=== PATIENT | female | born 1975 | race Caucasian/White ===

== ENCOUNTER 2017-12-20 13:51 | Emergency (ER) | payer OTHER ==
--- NOTE | 2017-12-20 15:40 | RAD ---
HISTORY: Left temporal headache, subacute trauma COMPARISONS: MRI dated May 20, 2017 TECHNIQUE: Multiple contiguous axial CT scans were obtained of the head without intravenous contrast. FINDINGS: HEMORRHAGE/INFARCT: There is no hemorrhage or acute infarct. MASSES/SHIFT: There is no mass or shift. EXTRA-AXIAL SPACES: There are no extra-axial fluid collections. SULCI AND VENTRICLES: The sulci and ventricles are normal in size and position for the patient's stated age. CEREBRUM: There is multifocal hypoattenuation corresponding to the white matter changes noted on the previous MRI examination. BRAINSTEM: There are no focal parenchymal abnormalities. CEREBELLUM: There are no focal parenchymal abnormalities. VESSELS: The vessels are grossly normal. PARANASAL SINUSES: The paranasal sinuses are clear. ORBITS: The orbits are unremarkable. BONES AND SOFT TISSUE: No bone or soft tissue abnormalities are noted. OTHER: None IMPRESSION: 1. MULTIFOCAL HYPOATTENUATION CORRESPONDING TO THE WHITE MATTER CHANGES ON THE PREVIOUS MRI EXAMINATION CONSISTENT WITH THE HISTORY OF MULTIPLE SCLEROSIS. 2. NO ACUTE INTRACRANIAL PATHOLOGY.
--- NOTE | 2017-12-20 15:41 | RAD ---
HISTORY: Neck pain, trauma, subacute COMPARISONS: MRI dated May 20, 2017 TECHNIQUE: Multiple contiguous axial CT scans were obtained of the cervical spine without intravenous contrast, with coronal and sagittal multiplanar reformations. FINDINGS: BRAIN: The visualized brain is unremarkable CENTRAL CANAL: Evaluation of the central canal is limited on CT technique; however, there is no obvious canalicular mass or epidural hemorrhage. ALIGNMENT: There is straightening of the cervical lordosis. VERTEBRAL BODIES: The odontoid process is intact. The atlantoaxial intervals are symmetric. The vertebral bodies are normal in attenuation, without fracture. There is mild posterior osteophytic ridging at C5-C6 and C6-C7. JOINTS: There is no subluxation or dislocation. MUSCULATURE: Unremarkable INTERVERTEBRAL DISCS: There is mild diffuse loss of intervertebral disc height. AXIAL IMAGES: C2-C3: There is no osseous neural foraminal narrowing or central canal stenosis. C3-C4: There is no osseous neural foraminal narrowing or central canal stenosis. C4-C5: There is no osseous neural foraminal narrowing or central canal stenosis. C5-C6: There is no osseous neural foraminal narrowing or central canal stenosis. C6-C7: There is no osseous neural foraminal narrowing or central canal stenosis. C7-T1: There is no osseous neural foraminal narrowing or central canal stenosis. SOFT TISSUES: The visualized soft tissues of the neck are unremarkable. The prevertebral fat stripe is preserved. OTHER: None. IMPRESSION: STRAIGHTENING OF THE CERVICAL LORDOSIS. MILD DEGENERATIVE CHANGES. NO ACUTE OSSEOUS INJURY TO THE CERVICAL SPINE
--- NOTE | 2017-12-20 16:10 | RAD ---
HISTORY: Left ankle pain status post fall COMPARISONS: December 09, 2014, MRI dated October 22, 2016 VIEWS: 3, Frontal, lateral, and oblique views of the left ankle FINDINGS: BONE DENSITY: Normal. BONES: There is no displaced fracture. JOINTS: There is no arthropathy. ALIGNMENT: There is no dislocation. SOFT TISSUES: Unremarkable. OTHER FINDINGS: None. IMPRESSION: NO ACUTE OSSEOUS INJURY. IF SYMPTOMS PERSIST, RECOMMEND REPEAT IMAGING.
--- NOTE | 2017-12-20 16:11 | RAD ---
HISTORY: Left shoulder and scapular pain, status post fall COMPARISONS: None relevant available time dictation VIEWS: 5, Frontal internal rotation, external rotation, outlet, and axillary views of the left shoulder with frontal and lateral views of the scapula FINDINGS: BONE DENSITY: Normal. BONES: There is no displaced fracture. JOINTS: There is no arthropathy. ALIGNMENT: There is no dislocation. SOFT TISSUES: Unremarkable. OTHER FINDINGS: None. IMPRESSION: NO ACUTE OSSEOUS INJURY. IF SYMPTOMS PERSIST, RECOMMEND REPEAT IMAGING.
--- NOTE | 2017-12-20 16:35 | ED ---
James Lord Sixian, scribed for George Coley MD on 12/20/17 at 1515 . Complex/Multi-Sys Presentation - HPI Summary HPI Summary: This patient is a 42 year old F presenting to ED with a chief complaint of head , left shoulder and left foot pain s/p a fall down 10 stairs since 1230 today. She hit head and shoulder on the wall. The patient rates the pain 4/10 in severity. Symptoms aggravated and alleviated by nothing. Patient reports dizziness, LOPEZ and a lump on the back of her head. Patient denies LOC, neck pain. - History Of Current Complaint Chief Complaint: EDGeneral Time Seen by Provider: 12/20/17 14:39 Hx Obtained From: Patient Onset/Duration: Sudden Onset, Lasting Hours, Still Present Timing: Constant, Hours Severity Currently: Moderate - 4/10 Aggravating Factor(s): nothing Alleviating Factor(s): nothing Associated Signs And Symptoms: Positive: Other - Patient reports dizziness, LOPEZ and a lump on the back of her head. Patient denies LOC, neck pain. - Allergies/Home Medications Allergies/Adverse Reactions: Allergies Allergy/AdvReac Type Severity Reaction Status Date / Time azithromycin Allergy GI Upset Verified 12/20/17 16:01 diphenhydramine Allergy Tachycardia Verified 12/20/17 16:01 gadoteridol Allergy Rash Verified 12/20/17 16:00 Iodinated Contrast- Oral and Allergy Rash Verified 12/20/17 16:02 IV Dye tramadol Allergy Nausea And Verified 12/20/17 16:02 Vomiting Home Medications: Home Medications ALPRAZolam TAB* [Xanax TAB*] 0.5 mg PO DAILY PRN 12/20/17 [History Confirmed 01/04] Cholecalciferol TAB* [Vitamin D TAB*] 1,000 unit PO DAILY 12/20/17 [History Confirmed 12/20/17] L.acidoph,Paracasei, B.lactis [Probiotic] 1 each PO DAILY 12/20/17 [History Confirmed 12/20/17] Lidocaine 5% OINT* [Xylocaine 5% Oint*] 1 applic TOPICAL BID 12/20/17 [History Confirmed 12/20/17] Meloxicam(NF) [Mobic(NF)] 7.5 mg PO BID 12/20/17 [History Confirmed 12/20/17] Multivitamins/Minerals TAB* [Theragran/minerals TAB*] 1 tab PO DAILY 12/20/17 [ History Confirmed 12/20/17] [place]-3 Fatty Acids (Nf) [Fish Oil (NF)] 1,000 mg PO DAILY 12/20/17 [History Confirmed 12/20/17] Omeprazole CAP* [Prilosec CAP* 20 MG] 40 mg PO DAILY 12/20/17 [History Confirmed 12/20/17] PMH/Surg Hx/FS Hx/Imm Hx Endocrine/Hematology History: Denies: Hx Anticoagulant Therapy, Hx Diabetes, Hx Thyroid Disease Cardiovascular History: Reports: Other Cardiovascular Problems/Disorders - mitral valve prolapse Denies: Hx Hypertension, Hx Pacemaker/ICD Respiratory History: Reports: Hx Asthma, Hx Chronic Bronchitis, Hx Sleep Apnea - current CPAP user Denies: Hx Chronic Obstructive Pulmonary Disease (COPD) Comment Only: Other Respiratory Problems/Disorders - smoker, in process of quitting 07/2013 GI History: Reports: Hx Gastroesophageal Reflux Disease, Other GI Disorders - celiac disease Denies: Hx Cirrhosis, Hx Ulcer History: Denies: Hx Renal Disease Comment Only: Other Problems/Disorders - LEFT FLANK PAIN X 2 DAYS Musculoskeletal History: Reports: Hx Arthritis - hips/R.A. 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 Neurological History: Reports: Hx Headaches, Hx Migraine, Hx Nerve Disease - ms , Other Neuro Impairments/Disorders - MS Denies: Hx Dementia, Hx Seizures Psychiatric History: Reports: Hx Anxiety Denies: Hx Panic Disorder, Hx Substance Abuse - Surgical History Surgery Procedure, Year, and Place: 2-C SECTIONS 1993 & 2001; 2009 HYSTERECTOMY , TUBES IN EARS, LEFT KNEE ARTHROSCOPIC SURGERY Infectious Disease History: No Infectious Disease History: Denies: Hx Clostridium Difficile, Hx Hepatitis, Hx Human Immunodeficiency Virus (HIV), Hx of Known/Suspected MRSA, Hx Shingles, Hx Tuberculosis, Hx Known/ Suspected VRE, Hx Known/Suspected VRSA, History Other Infectious Disease, Traveled Outside the [place] in Last 30 Days - Family History Known Family History: Positive: Hypertension, Respiratory Disease - Asthma, Other - CHOLESTEROL - Social History Alcohol Use: None Substance Use Type: Reports: None Substance Use Comment - Amount & Last Used: MARINOL Smoking Status (MU): Former Smoker Have You Smoked in the Last Year: No Review of Systems Musculoskeletal: Negative - neck pain Positive: Other - lump on back of head Neurological: Negative - LOC, Other - dizziness Positive: Headache All Other Systems Reviewed And Are Negative: Yes Physical Exam - Summary Physical Exam Summary: General: well-appearing Skin: warm, color reflects adequate perfusion, dry Head: normal Eyes: EOMI, ALBERT ENT: normal Neck: supple, nontender Respiratory: CTA, breath sounds present Cardiovascular: RRR Abdomen: soft, nontender Bowel: present Musculoskeletal: strength intact, Mild tenderness due to palpation over the left scapula. Ankle swelling and tenderness of the lateral aspect. Pain with ROM of L ankle. Pain with ROM of shoulder, Declined internals rotation secondary to pain Neurological: normal, sensory/motor intact, A&O x3 Psychological: affect/mood appropriate Vital Signs On Initial Exam: Initial Vitals Temp Pulse Resp BP Pulse Ox 98.4 F 76 18 135/92 91 12/20/17 13:58 12/20/17 13:58 12/20/17 13:58 12/20/17 13:58 12/20/17 13:58 Diagnostics - Vital Signs Vital Signs Temp Pulse Resp BP Pulse Ox 12/20/17 13:58 98.4 F 76 18 135/92 91 - Laboratory Lab Statement: Any lab studies that have been ordered have been reviewed, and results considered in the medical decision making process. - Radiology shoulder XR Radiology Interpretation Completed By: Radiologist - NO ACUTE OSSEOUS INJURY. IF SYMPTOMS PERSIST, RECOMMEND REPEAT IMAGING. ED physician has reviewed this radiology report. scapula XR Radiology Interpretation Completed By: Radiologist - NO ACUTE OSSEOUS INJURY. IF SYMPTOMS PERSIST, RECOMMEND REPEAT IMAGING. ED physician has reviewed this radiology report. ankle XR Radiology Interpretation Completed By: Radiologist - NO ACUTE OSSEOUS INJURY. IF SYMPTOMS PERSIST, RECOMMEND REPEAT IMAGING. ED physician has reviewed this radiology report. - CT spine CT Interpretation Completed By: Radiologist - STRAIGHTENING OF THE CERVICAL LORDOSIS. MILD DEGENERATIVE CHANGES. NO ACUTE OSSEOUS INJURY TO THE CERVICAL SPINE. ED physician has reviewed this radiology report. brain CT Interpretation Completed By: Radiologist - 1. MULTIFOCAL HYPOATTENUATION CORRESPONDING TO THE WHITE MATTER CHANGES ON THE PREVIOUS MRI EXAMINATION CONSISTENT WITH THE HISTORY OF MULTIPLE SCLEROSIS. 2. NO ACUTE INTRACRANIAL PATHOLOGY. ED physician has reviewed this radiology report. Complex Multi-Symp Course/Dx Course Of Treatment: BP noted and advised to follow up with PCP. Medications reviewed. Allergies noted. DISCUSSED RESULTS WITH PATIENT AND HER . PATIENT REPORTS SHE HAS AN ANKLE AIR CAST AT HOME WHICH SHE WILL USE. F/U PMD; RETURN IF WORSE. - Diagnoses Provider Diagnoses: Left ankle sprain, Contusion of left shoulder, Head injury Discharge - Discharge Plan Condition: Stable Disposition: HOME Patient Education Materials: Ankle Sprain (ED), Head Injury (ED), Shoulder Sprain (ED) Referrals: Parul Watts NP [Primary Care Provider] - Additional Instructions: FOLLOW UP WITH YOUR DOCTOR. RETURN TO THE EMERGENCY DEPARTMENT FOR ANY WORSENING OF YOUR CONDITION OR QUESTIONS OR CONCERNS. YOUR BLOOD PRESSURE WAS ELEVATED TODAY; FOLLOW UP WITH YOUR PRIMARY CARE DOCTOR WITHIN THE NEXT 1 WEEK. The documentation as recorded by the James asndoval Sixian accurately reflects the service I personally performed and the decisions made by , George Coley MD.
[2017-12-20 16:59] VITALS: BP 126/82
== END 2017-12-20 16:58 | disposition home or self-care (01) ==
LOC: ED 13:51
DX: S09.90XA Unspecified injury of head, initial encounter (principal); S93.402A Sprain of unspecified ligament of left ankle, initial encounter; S40.012A Contusion of left shoulder, initial encounter; W10.9XXA Fall (on) (from) unspecified stairs and steps, initial encounter; Y92.9 Unspecified place or not applicable; Z88.8 Allergy status to other drugs, medicaments and biological substances; Z88.3 Allergy status to other anti-infective agents; Z91.041 Radiographic dye allergy status
CPT/HCPCS: 70450; 72125; 99282

== ENCOUNTER 2018-01-04 14:19 | Emergency (ER) | payer OTHER ==
--- NOTE | 2018-01-04 14:26 | UC ---
Throat Pain/Nasal Abraham HPI - HPI Summary HPI Summary: Pt presents with sore throat for the last week. She was seen by her PCP on friday and had a negative strep test. Was told her symptoms are likely viral. She is here today with worsening sore throat. Denies fever, chills, cough , SOB, chest pain. - History of Current Complaint Stated Complaint: EAR ACHE, SORE THROAT, AND SINUS CONGESTION Time Seen by Provider: 01/04/18 14:26 Hx Obtained From: Patient Hx Last Menstrual Period: 5 yrs ago Onset/Duration: Gradual Onset Severity: Moderate Pain Intensity: 5 Pain Scale Used: 0-10 Numeric - Allergies/Home Medications Allergies/Adverse Reactions: Allergies Allergy/AdvReac Type Severity Reaction Status Date / Time azithromycin Allergy GI Upset Verified 01/04/18 14:39 diphenhydramine Allergy Tachycardia Verified 01/04/18 14:39 gadoteridol Allergy Rash Verified 01/04/18 14:39 Iodinated Contrast- Oral and Allergy Rash Verified 01/04/18 14:39 IV Dye tramadol Allergy Nausea And Verified 01/04/18 14:39 Vomiting PMH/Surg Hx/FS Hx/Imm Hx Respiratory History: Asthma GI/ History: Gastroesophageal Reflux Other History Of: Negative For: Anticoagulant Therapy - Surgical History Surgical History: Yes Surgery Procedure, Year, and Place: 2-C SECTIONS 1993 & 2001; 2009 HYSTERECTOMY , TUBES IN EARS, LEFT KNEE ARTHROSCOPIC SURGERY - Family History Known Family History: Positive: Hypertension, Respiratory Disease - Asthma, Other - CHOLESTEROL - Social History Occupation: Employed Full-time Lives: With Family Alcohol Use: None Substance Use Type: None Substance Use Comment - Amount & Last Used: MARINOL Smoking Status (MU): Former Smoker Have You Smoked in the Last Year: No When Did the Patient Quit Smoking/Using Tobacco: 2012 - Immunization History Most Recent Influenza Vaccination: 08/02 Most Recent Tetanus Shot: 10 years ago Review of Systems Constitutional: Negative Skin: Negative Eyes: Negative ENT: Sore Throat, Sinus Congestion Respiratory: Negative Cardiovascular: Negative Gastrointestinal: Negative Neurological: Negative Psychological: Negative All Other Systems Reviewed And Are Negative: Yes Physical Exam - Summary Physical Exam Summary: GENERAL: NAD. WDWN. No pain distress. SKIN: No rashes, sores, ulcers, masses, lesions. HEENT: Head: AT/NC Eyes: Conjunctiva clear without inflammation or discharge. Ears: Hearing grossly normal. TMs intact, no bulging, erythema, or edema. Nose: Nasal mucosa pink and moist. NTTP maxillary and frontal sinus. Throat: Posterior oropharynx mild erythema. No tonsillar enlargement. No exudates. Uvula midline. No hoarse voice or muffled voice. NECK: Supple. Left sided LAD mild TTP CHEST: CTAB. No r/r/w. No accessory muscle use. Breathing comfortably and in no distress. CV: RRR. Without m/r/g. Pulses intact. Brisk cap refill. NEURO: Alert. CN II-XII grossly intact. PSYCH: Age appropriate behavior. Triage Information Reviewed: Yes Throat Pain/Nasal Course/Dx - Course Course Of Treatment: Pt requesting Augmentin as amoxicillin "does not work". - Differential Dx/Diagnosis Provider Diagnoses: Pharyngitis Discharge - Discharge Plan Condition: Stable Disposition: HOME Prescriptions: Amoxicillin/Clavulanate TAB* [Augmentin TAB 875*] 875 mg PO BID #20 tab Patient Education Materials: Pharyngitis (ED) Referrals: Parul Watts NP [Primary Care Provider] - Additional Instructions: If you develop a fever, shortness of breath, chest pain, new or worsening symptoms - please call your PCP or go to the ED.
[2018-01-04 14:38] VITALS: BP 126/86
== END 2018-01-04 14:55 | disposition home or self-care (01) ==
LOC: UCEAST 14:19
DX: J02.9 Acute pharyngitis, unspecified (principal); Z87.891 Personal history of nicotine dependence; Z88.5 Allergy status to narcotic agent; Z88.8 Allergy status to other drugs, medicaments and biological substances; Z88.3 Allergy status to other anti-infective agents; Z91.041 Radiographic dye allergy status
CPT/HCPCS: 99212; G0463

== ENCOUNTER 2018-07-10 09:07 | Emergency (ER) | payer OTHER ==
[2018-07-10 10:59] LABS: ABS Basophils 0 10^3/ul (0-0.2); ABS Eosinophils 0 10^3/ul (0-0.6); ABS Lymphocytes 1.4 10^3/ul (1.0-4.8); ABS Monocytes 0.3 10^3/ul (0-0.8); ABS Neutrophils 2.4 10^3/ul (1.5-7.7); ABS Nucleated RBC 0 10^3/ul; Eosinophil % 1.2 % (0-6); Hematocrit 41 % (35-47); Mean Corpuscular HGB Conc 34 g/dl (31-36); Mean Corpuscular Hemoglobin 29 pg (27-31); Mean Corpuscular Volume 85 fL (80-97); Mean Platelet Volume 8.5 um3 (7.4-10.4); Nucleated Red Blood Cells % 0.2; Platelet Count 255 10^3/ul (150-450); Red Blood Count 4.88 10^6/ul (4.00-5.40); Red Cell Distribution Width 14 % (10.5-15); White Blood Count 4.2 10^3/ul (3.5-10.8)
[2018-07-10 11:07] LABS: INR 0.93 (0.77-1.02)
[2018-07-10 11:18] LABS: EGFR Non-African American 95.4 (>60)
[2018-07-10 11:25] LABS: Urine Appearance Clear; Urine Blood Negative (Negative); Urine Color Straw; Urine Ketones Negative (Negative); Urine Protein Negative (Negative); Urine Specific Gravity 1.004 (1.010-1.030); Urine Urobilinogen Negative (Negative)
--- NOTE | 2018-07-10 11:40 | ED ---
Abdominal Pain/Female - HPI Summary HPI Summary: Patient presents with right upper quadrant pain radiating back to her right shoulder 2 days. She reports this is worse with eating or drinking. She has had excessive belching which helps temporarily but once gas rebuilds, pain and pressure returned. She also notes loose stools but denies melena or hematochezia. She does take ibuprofen regularly for prophylaxis against side effects from MS med. Denies h/o ulcer/GI bleed. History of gallbladder stone years ago - feels similar - has not had any issues with this since. Denies fever, chills, vomiting, chest pain, shortness of breath, urinary symptoms. No injury to the area. Tums with Gas-X have provided some relief. 02/26. - History of Current Complaint Chief Complaint: EDAbdPain Stated Complaint: POSS GALL STONES/RT FLANK PAIN Time Seen by Provider: 07/10/18 09:47 Hx Obtained From: Patient Hx Last Menstrual Period: 5 yrs ago Pain Intensity: 6 Allergies/Adverse Reactions: Allergies Allergy/AdvReac Type Severity Reaction Status Date / Time azithromycin Allergy GI Upset Verified 07/10/18 09:09 diphenhydramine Allergy Tachycardia Verified 07/10/18 09:09 gadoteridol Allergy Rash Verified 07/10/18 09:09 Iodinated Contrast- Oral and Allergy Rash Verified 07/10/18 09:09 IV Dye tramadol Allergy Nausea And Verified 07/10/18 09:09 Vomiting Home Medications: Home Medications ALPRAZolam TAB* [Xanax TAB*] 0.25 mg PO Q8H PRN 07/10/18 [History Confirmed ] Baclofen TAB* [Lioresal TAB*] 10 mg PO BID PRN 07/10/18 [History Confirmed 07/10] DiMENhydriNATE TAB* [DraMAMine TAB*] 50 mg PO Q6H PRN 07/10/18 [History Confirmed 07/10/18] Diclofenac 1% GEL (NF) [Voltaren 1% GEL (NF)] 2 applic TOPICAL BID 07/10/18 [ History Confirmed 07/10/18] Glucosamine/D3/Boswellia Sara [Glucosamine Complex] 1 tab PO DAILY 07/10/18 [ History Confirmed 07/10/18] Interferon Beta 1a (NF) [Rebif (NF)] 44 mcg SUBCUT .THREE TIMES A WEEK 07/10/18 [History Confirmed 07/10/18] Krill/Om-3/Dha/Epa/Phospho/Ast [Krill Oil 500 mg Softgel] 1 cap PO DAILY [History Confirmed 07/10/18] L.acidoph,Paracasei, B.lactis [Probiotic] 1 cap PO DAILY 07/10/18 [History Confirmed 07/10/18] Lidocaine HCl [Aspercreme W/Lidocaine] 4 % TOPICAL DAILY PRN 07/10/18 [History Confirmed 07/10/18] Medical Marijuana 1 inh INH SEE INSTRUCTIONS PRN 07/10/18 [History Confirmed ] metFORMIN* [Glucophage 500 MG TAB *] 500 mg PO DAILY WITH MEAL 07/10/18 [ History Confirmed 07/10/18] PMH/Surg Hx/FS Hx/Imm Hx Previously Healthy: Yes Endocrine/Hematology History: Denies: Hx Anticoagulant Therapy, Hx Diabetes, Hx Thyroid Disease Cardiovascular History: Reports: Other Cardiovascular Problems/Disorders - mitral valve prolapse - followed by [facility] - no issues Denies: Hx Hypertension, Hx Pacemaker/ICD Respiratory History: Reports: Hx Asthma, Hx Chronic Bronchitis, Hx Sleep Apnea - current CPAP user Denies: Hx Chronic Obstructive Pulmonary Disease (COPD) Comment Only: Other Respiratory Problems/Disorders - smoker, in process of quitting 07/2013 GI History: Reports: Hx Gastroesophageal Reflux Disease - no meds currently, Other GI Disorders - celiac disease Denies: Hx Cirrhosis, Hx Ulcer History: Denies: Hx Renal Disease Comment Only: Other Problems/Disorders - LEFT FLANK PAIN X 2 DAYS Musculoskeletal History: Reports: Hx Arthritis - hips/R.A. 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 Neurological History: Reports: Hx Headaches, Hx Migraine, Hx Nerve Disease - ms , Other Neuro Impairments/Disorders - MS Denies: Hx Dementia, Hx Seizures Psychiatric History: Reports: Hx Anxiety Denies: Hx Panic Disorder, Hx Substance Abuse - Cancer History Hx Chemotherapy: No Hx Radiation Therapy: No - Surgical History Surgery Procedure, Year, and Place: 2-C SECTIONS 1993 & 2001; 2009 HYSTERECTOMY , TUBES IN EARS, LEFT KNEE ARTHROSCOPIC SURGERY Infectious Disease History: No Infectious Disease History: Denies: Hx Clostridium Difficile, Hx Hepatitis, Hx Human Immunodeficiency Virus (HIV), Hx of Known/Suspected MRSA, Hx Shingles, Hx Tuberculosis, Hx Known/ Suspected VRE, Hx Known/Suspected VRSA, History Other Infectious Disease, Traveled Outside the [place] in Last 30 Days - Family History Known Family History: Positive: Hypertension, Respiratory Disease - Asthma, Other - CHOLESTEROL - Social History Lives: With Family Alcohol Use: None Hx Substance Use: No Substance Use Type: Reports: None Substance Use Comment - Amount & Last Used: MARINOL Hx Tobacco Use: Yes - not currently Smoking Status (MU): Former Smoker Have You Smoked in the Last Year: No Review of Systems Constitutional: Negative Negative: Fever, Chills, Fatigue ENT: Negative Negative: Dental Pain Cardiovascular: Negative Negative: Palpitations, Chest Pain Respiratory: Negative Negative: Shortness Of Breath, Cough Positive: Abdominal Pain, Nausea, Other - loose stools. Negative: Vomiting Genitourinary: Negative Musculoskeletal: Negative Skin: Negative Neurological: Negative Positive: Anxious - stress - multiple deaths of friends/family recently All Other Systems Reviewed And Are Negative: Yes Physical Exam Triage Information Reviewed: Yes Vital Signs On Initial Exam: Initial Vitals Temp Pulse Resp BP Pulse Ox 98.1 F 66 16 136/89 99 07/10/18 09:10 07/10/18 09:10 07/10/18 09:10 07/10/18 09:10 07/10/18 09:10 Vital Signs Reviewed: Yes Appearance: Positive: Well-Appearing, No Pain Distress, Obese Skin: Positive: Warm, Skin Color Reflects Adequate Perfusion, Dry Head/Face: Positive: Normal Head/Face Inspection Eyes: Positive: Normal, EOMI, Conjunctiva Clear - anicteric sclera ENT: Positive: Normal ENT inspection, Hearing grossly normal, Pharynx normal - mucosa moist Neck: Positive: Supple, Nontender Respiratory/Lung Sounds: Positive: Clear to Auscultation, Breath Sounds Present. Negative: Rales, Rhonchi, Wheezes Cardiovascular: Positive: Normal, RRR, S1, S2. Negative: Leg Edema Left, Leg Edema Right Abdomen Description: Positive: Soft, Other: - + Berman's sign - reports Rt scapular pain but NTTP Bowel Sounds: Positive: Present, Hyperactive Musculoskeletal: Positive: Normal, Strength/ROM Intact Neurological: Positive: Normal, Sensory/Motor Intact, Alert, Oriented to Person Place, Time, CN Intact II-III Psychiatric: Positive: Anxious Diagnostics - Vital Signs Vital Signs Temp Pulse Resp BP Pulse Ox 07/10/18 09:10 98.1 F 66 16 136/89 99 - Laboratory Lab Results: Lab Results 07/10/18 07/10/18 07/10/18 Range/Units 10:43 10:43 10:43 WBC 4.2 (3.5-10.8) 10^3/ul RBC 4.88 (4.00-5.40) 10^6/ul Hgb 14.0 (12.0-16.0) g/dl Hct 41 (35-47) % MCV 85 (80-97) fL MCH 29 (27-31) pg MCHC 34 (31-36) g/dl RDW 14 (10.5-15) % Plt Count 255 (150-450) 10^3/ul MPV 8.5 (7.4-10.4) um3 Neut % (Auto) 58.8 (38-83) % Lymph % (Auto) 33.0 (25-47) % [place] % (Auto) 6.3 (0-7) % Eos % (Auto) 1.2 (0-6) % Baso % (Auto) 0.7 (0-2) % Absolute Neuts (auto) 2.4 (1.5-7.7) 10^3/ul Absolute Lymphs (auto) 1.4 (1.0-4.8) 10^3/ul Absolute Monos (auto) 0.3 (0-0.8) 10^3/ul Absolute Eos (auto) 0 (0-0.6) 10^3/ul Absolute Basos (auto) 0 (0-0.2) 10^3/ul Absolute Nucleated RBC 0 10^3/ul Nucleated RBC % 0.2 INR (Anticoag Therapy) 0.93 (0.77-1.02) APTT 31.5 (26.0-36.3) seconds Sodium 140 (135-145) mmol/L Potassium 4.0 (3.5-5.0) mmol/L Chloride 105 (101-111) mmol/L Carbon Dioxide 28 (22-32) mmol/L Anion Gap 7 (2-11) mmol/L BUN 8 (6-24) mg/dL Creatinine 0.68 (0.51-0.95) mg/dL Est GFR ( Amer) 115.4 (>60) Est GFR (Non-Af Amer) 95.4 (>60) BUN/Creatinine Ratio 11.8 (8-20) Glucose 96 (70-100) mg/dL Lactic Acid (0.5-2.0) mmol/L Calcium 10.1 (8.6-10.3) mg/dL Magnesium 2.0 (1.9-2.7) mg/dL Total Bilirubin 2.10 H (0.2-1.0) mg/dL AST 20 (13-39) U/L ALT 24 (7-52) U/L Alkaline Phosphatase 96 (34-104) U/L C-Reactive Protein 3.57 (<8.01) mg/L Total Protein 7.2 (6.4-8.9) g/dL Albumin 4.3 (3.2-5.2) g/dL Globulin 2.9 (2-4) g/dL Albumin/Globulin Ratio 1.5 (1-3) Lipase 20 (11.0-82.0) U/L Beta HCG, Quant 1.46 mIU/mL Urine Color Urine Appearance Urine pH (5-9) Ur Specific [place] (1.010-1.030) Urine Protein (Negative) Urine Ketones (Negative) Urine Blood (Negative) Urine Nitrate (Negative) Urine Bilirubin (Negative) Urine Urobilinogen (Negative) Ur Leukocyte Esterase (Negative) Urine Glucose (Negative) 07/10/18 07/10/18 Range/Units 10:43 11:12 WBC (3.5-10.8) 10^3/ul RBC (4.00-5.40) 10^6/ul Hgb (12.0-16.0) g/dl Hct (35-47) % MCV (80-97) fL MCH (27-31) pg MCHC (31-36) g/dl RDW (10.5-15) % Plt Count (150-450) 10^3/ul MPV (7.4-10.4) um3 Neut % (Auto) (38-83) % Lymph % (Auto) (25-47) % [place] % (Auto) (0-7) % Eos % (Auto) (0-6) % Baso % (Auto) (0-2) % Absolute Neuts (auto) (1.5-7.7) 10^3/ul Absolute Lymphs (auto) (1.0-4.8) 10^3/ul Absolute Monos (auto) (0-0.8) 10^3/ul Absolute Eos (auto) (0-0.6) 10^3/ul Absolute Basos (auto) (0-0.2) 10^3/ul Absolute Nucleated RBC 10^3/ul Nucleated RBC % INR (Anticoag Therapy) (0.77-1.02) APTT (26.0-36.3) seconds Sodium (135-145) mmol/L Potassium (3.5-5.0) mmol/L Chloride (101-111) mmol/L Carbon Dioxide (22-32) mmol/L Anion Gap (2-11) mmol/L BUN (6-24) mg/dL Creatinine (0.51-0.95) mg/dL Est GFR ( Amer) (>60) Est GFR (Non-Af Amer) (>60) BUN/Creatinine Ratio (8-20) Glucose (70-100) mg/dL Lactic Acid 0.9 (0.5-2.0) mmol/L Calcium (8.6-10.3) mg/dL Magnesium (1.9-2.7) mg/dL Total Bilirubin (0.2-1.0) mg/dL AST (13-39) U/L ALT (7-52) U/L Alkaline Phosphatase (34-104) U/L C-Reactive Protein (<8.01) mg/L Total Protein (6.4-8.9) g/dL Albumin (3.2-5.2) g/dL Globulin (2-4) g/dL Albumin/Globulin Ratio (1-3) Lipase (11.0-82.0) U/L Beta HCG, Quant mIU/mL Urine Color Straw Urine Appearance Clear Urine pH 8.0 (5-9) Ur Specific [place] 1.004 L (1.010-1.030) Urine Protein Negative (Negative) Urine Ketones Negative (Negative) Urine Blood Negative (Negative) Urine Nitrate Negative (Negative) Urine Bilirubin Negative (Negative) Urine Urobilinogen Negative (Negative) Ur Leukocyte Esterase Negative (Negative) Urine Glucose Negative (Negative) Result Diagrams: 07/10/18 10:43 07/10/18 10:43 Lab Statement: Any lab studies that have been ordered have been reviewed, and results considered in the medical decision making process. Abdominal Pain Fem Course/Dx - Course Course Of Treatment: Labs are remarkable only for elevated bilirubin (2). She has had increased levels in the past in the low 1.2's, etc. All other labs are WNL. U/S reveals inflammed cyst vs. cholesterol w/ hepatosteatosis. Dr. Albarado consulted re: colicky digestive sx w/ abnormal U/S and elevated bilirubin. She would like to try GI cocktail minus lidocaine as she reports this has helped in the past but does not tolerate lidocaine well (will remove). Discussed importance of reducing NSAID's along w/ foods that may aggravate her stomach as well as her GB (she agrees). She may also try a PPI x 2 weeks. If relief, may have gastritis. If no relief, suggest HIDA CCk to better assess gallbladder function - this may be performed through her PCP's office. Discussed possibility of cardiac issues - low clinical suspicion w/ sx however offered ECG , troponin, etc and pt declined as her sx improved w/ GI cocktail. Reviewed danger s/sx of when to return to ED. Pt and friend agree w/ plan. - Diagnoses Provider Diagnoses: Abdominal pain Discharge - Sign-Out/Discharge Documenting (check all that apply): Patient Departure - Discharge Plan Condition: Stable Disposition: HOME Patient Education Materials: Biliary Colic (ED), Gastroesophageal Reflux Disease (ED), Acute Abdominal Pain (ED), Non-Alcoholic Fatty Liver Disease (ED) , Gas and Bloating (ED) Referrals: Jocelyne Vasquez MD [Primary Care Provider] - Nicola Albarado MD [Medical Doctor] - Additional Instructions: The definitive cause of your symptoms was not identified today however there a few diagnosis still pending further work-up. These may be performed outpatient. Stop ibuprofen and all NSAID's and start prilosec 20mg daily for 2 weeks Follow a "GERD" diet (see education for information) Additionally, you may benefit from an upper GI scope - your PCP may order this for you - call to schedule an appointment Avoid fatty food and follow the healthy liver diet (see education for information) You may benefit from a HIDA CCK to evaluate the function of your gallbladder - your PCP may order this for you as well Your ECG appears to be normal today however if your symptoms persist or worsen, you may benefit from further cardiac work-up. *Return to ED if you feel worse - Billing Disposition and Condition Condition: STABLE Disposition: Home
--- NOTE | 2018-07-10 11:52 | RAD ---
Indication: RIGHT upper quadrant pain, nausea, positive Berman's sign. Comparison: August 29, 2015 ultrasound. Technique: RIGHT upper quadrant ultrasound. Report: Appropriate direction flow documented in the portal and hepatic veins. 18.1 cm liver is increased in echogenicity consistent with hepatosteatosis with focal sparing adjacent to the gallbladder fossa.. Negative for suspicious focal hepatic lesions. Negative for intrahepatic biliary dilatation. 3.0 mm common bile duct. Adequately distended gallbladder with normal 2.6 mm wall is remarkable for a nonmobile 0.5 cm focal echogenic structure along the posterior wall without shadowing suspicious for a polyp. Negative for cholelithiasis or pericholecystic fluid. Negative for sonographic Berman's sign. The pancreatic tail is partially obscured due to bowel gas with the visualized pancreas unremarkable. Negative for ascites. 11.3 cm RIGHT kidney is unremarkable. IMPRESSION: #. 0.5 cm probable cholesterol or inflammatory polyp. This finding is new compared with the prior exam. Gallbladder polyps 0.6 cm or smaller have extremely low risk of malignancy and typically do not warrant follow up. On occasion polyps may actually represent small gallstones adherent to the gallbladder wall at surgery. #. Hepatosteatosis.
[2018-07-10] MEDS ORDERED: Al Hydrox/Mg Hydrox/Simet LIQ* 30 ML UDC PO ONE (13:56)
--- NOTE | 2018-07-10 14:29 | CONS ---
CC: Dr. Jocelyne Vasquez; [facility] * SURGICAL CONSULTATION REPORT: DATE OF CONSULT: 07/10/18 LOCATION: The patient was seen in the emergency room on 07/10/18. HISTORY OF PRESENT ILLNESS: Ms. Lancaster is a 42-year-old female, who presented to the emergency room early today with a 2-day history of upper abdominal and right upper quadrant pain along with back pain on the right side and along with significant belching. The patient describes decreased appetite; however, it seems that when the patient eats any types of food, it leads to consistent belching and this is what she has been having difficulty with. The last thing she ate was boiled carrots yesterday. This led to additional belching. The pain in her back is new. She has had abdominal pain in the past. She denies any nausea or vomiting. No fevers or chills. No change in bowel habits. The patient does endorse a diagnosis of certain food sensitivities and now thinks that she might also be lactose intolerant as well. She is not eating these items and indeed has no significant appetite. PAST MEDICAL HISTORY: MS, gastroesophageal reflux disease, obesity, anxiety, and type 2 diabetes. PAST SURGICAL HISTORY: x2 and a hysterectomy. MEDICATIONS: Medication list reviewed and includes metformin. ALLERGIES: Allergy list reviewed and is documented in the chart. FAMILY HISTORY: Positive for biliary disease. SOCIAL HISTORY: She is a nonsmoker. Lives with family. Denies IV drug abuse. REVIEW OF SYSTEMS: No fevers or chills. Intermittent shortness of breath at times. Back pain as described above. No jaundice type symptoms. Abdominal pain as described. Decreased appetite. No significant weight loss or weight gain. Irritable bowel symptoms are endorsed. No dysuria. GERD like symptoms that are treated with omeprazole. Also, the patient takes Tums frequently and for the last 2 days has taken it more frequently than usual. The patient has never had an EGD. She takes regular injections herself at home 3 times a week and will take ibuprofen regularly before and after these shots that will total anywhere from 400 to 600 mg. Endocrine disorder as described with elevated fingersticks, but not significantly elevated hemoglobin A1c according to the patient. No bleeding or clotting disorders. PHYSICAL EXAM: Temperature 99, blood pressure 131/96, pulse 82, respirations 16. She is alert and oriented x3. She is in no distress. Head, Ears, Eyes, Nose, and Throat: Normocephalic, atraumatic. Sclerae anicteric. Mucous membranes are moist. Neck: No lymphadenopathy. Lungs: Clear to auscultation bilaterally. No back pain or step-offs along the spinal column. No CVA tenderness. Abdomen is soft, obese, nondistended, tender on deep palpation in the epigastric and at the right upper quadrant and at the umbilicus. Small minimal umbilical hernia without contents. No masses are noted. No skin changes. Well-healed lower abdominal incisions. Rectal Exam: Not performed. Extremities: Within normal limits. DIAGNOSTIC STUDIES/LAB DATA: Labs reviewed, show white count of 4.2 with no left shift. Chemistry panel: The only finding on this is the elevated T bili of 2.1. The patient had elevated bilirubins in the past, but not as high as 2. LFTs are otherwise normal including alk phos. The patient underwent an ultrasound of the gallbladder and liver. It did show a liver consistent with hepatosteatosis, but no discrete hepatic lesion. Common bile duct appeared normal. Normal-appearing gallbladder wall. There was a single lesion that did not appear to be a stone in the gallbladder, but rather consistent with a polyp that measured 0.5 cm. IMPRESSION AND PLAN: A 42-year-old female with multiple sclerosis, diabetes, who presents with a chief complaint which seems to be back pain, on frequent Advil, who I do not believe is suffering with biliary colic. She certainly does not have acute cholecystitis and I do not recommend urgent cholecystectomy. This may represent a biliary colic, but it is unlikely. I think the patient would benefit from GI evaluation and endoscopy. I could see her as an outpatient and possibly send her for a HIDA scan as well as we follow her. The differential diagnosis does include peptic ulcer disease, poor gastric emptying, and possible chronic back pain. I will discuss this case with the ER physician and if it is felt that the patient cannot tolerate diet here, she may require admission whereby I would recommend hospitalist service and GI evaluation and we can follow along. If she does go home, she can certainly follow up with me as an outpatient. [id number]/[facility] #: [id number] MTDD
[2018-07-10 15:20] VITALS: BP 132/88
== END 2018-07-10 15:19 | disposition home or self-care (01) ==
LOC: ED 09:07
DX: R10.11 Right upper quadrant pain (principal); R11.0 Nausea; R19.7 Diarrhea, unspecified; E11.21 Type 2 diabetes mellitus with diabetic nephropathy; Z79.84 Long term (current) use of oral hypoglycemic drugs; G35 Multiple sclerosis; F41.9 Anxiety disorder, unspecified; Z88.5 Allergy status to narcotic agent; Z88.8 Allergy status to other drugs, medicaments and biological substances; Z88.1 Allergy status to other antibiotic agents; Z91.041 Radiographic dye allergy status; Z87.891 Personal history of nicotine dependence
CPT/HCPCS: 36415; 76705; 80053; 81003; 83605; 83690; 83735; 84702; 85025; 85610; 85730; 86140; 93005; 99283; A9270-GY

== ENCOUNTER 2018-07-14 08:15 | Emergency (ER) | payer OTHER ==
[2018-07-14 08:29] VITALS: BP 123/81
--- NOTE | 2018-07-14 09:03 | UC ---
Skin Complaint HPI - HPI Summary HPI Summary: pain right flank area x 5 days concern about shingles, pain is sharp , shooting , skin is painful and sensitive to touch no fever, no chills - History of Current Complaint Chief Complaint: UCGeneralIllness Time Seen by Provider: 07/14/18 08:18 Stated Complaint: POSS SHINGLES Hx Obtained From: Patient Hx Last Menstrual Period: 5 yrs ago ?: No Onset/Duration: Gradual Onset, Lasting Days - 5, Still Present Timing: Constant Onset Severity: Moderate Current Severity: Moderate Pain Intensity: 6 Pain Scale Used: 0-10 Numeric Location: Discrete - right flank Character: Pain Aggravating Factor(s): Clothing, Touch Alleviating Factor(s): Nothing Associated Signs & Symptoms: Negative: Nausea, Vomiting, Numbness, Thirst, Diaphoresis, Weakness, Fever, Chills, Cough - Allergy/Home Medications Allergies/Adverse Reactions: Allergies Allergy/AdvReac Type Severity Reaction Status Date / Time azithromycin Allergy GI Upset Verified 07/14/18 08:30 diphenhydramine Allergy Tachycardia Verified 07/14/18 08:30 gadoteridol Allergy Rash Verified 07/14/18 08:30 Iodinated Contrast- Oral and Allergy Rash Verified 07/14/18 08:30 IV Dye tramadol Allergy Nausea And Verified 07/14/18 08:30 Vomiting Review of Systems Constitutional: Negative Skin: Negative Eyes: Negative ENT: Negative Respiratory: Negative Is Patient Immunocompromised?: No All Other Systems Reviewed And Are Negative: Yes PMH/Surg Hx/FS Hx/Imm Hx Respiratory History: Asthma Other History Of: Negative For: Anticoagulant Therapy - Surgical History Surgical History: Yes Surgery Procedure, Year, and Place: 2-C SECTIONS 1993 & 2001; 2009 HYSTERECTOMY , TUBES IN EARS, LEFT KNEE ARTHROSCOPIC SURGERY - Family History Known Family History: Positive: Hypertension, Respiratory Disease - Asthma, Other - CHOLESTEROL - Social History Alcohol Use: None Substance Use Type: None Substance Use Comment - Amount & Last Used: MARINOL Smoking Status (MU): Former Smoker Have You Smoked in the Last Year: No When Did the Patient Quit Smoking/Using Tobacco: 2012 - Immunization History Most Recent Influenza Vaccination: 08/02 Most Recent Tetanus Shot: 10 years ago Physical Exam Triage Information Reviewed: Yes Appearance: Well-Appearing, No Pain Distress, Well-Nourished Vital Signs: Initial Vital Signs Temp 97.7 F 07/14/18 08:22 Pulse 74 07/14/18 08:22 Resp 18 07/14/18 08:22 BP 123/81 07/14/18 08:22 Pulse Ox 100 07/14/18 08:22 Vital Signs Reviewed: Yes Eye Exam: Normal Eyes: Positive: Conjunctiva Clear ENT: Positive: Normal ENT inspection, Hearing grossly normal, Pharynx normal Neck exam: Normal Neck: Positive: Supple, Nontender, No Lymphadenopathy Respiratory Exam: Normal Respiratory: Positive: Chest non-tender, Lungs clear, Normal breath sounds Cardiovascular: Positive: RRR, No Murmur, Pulses Normal Abdominal Exam: Normal Abdomen Description: Positive: Nontender, Soft. Negative: CVA Tenderness (R), CVA Tenderness (L), Distended, Guarding Bowel Sounds: Positive: Present Skin: Positive: rashes - no rash noted, + tendernss right flank area Course/Dx - Diagnoses Provider Diagnoses: shingles Discharge - Sign-Out/Discharge Documenting (check all that apply): Patient Departure All imaging exams completed and their final reports reviewed: No Studies - Discharge Plan Condition: Stable Disposition: HOME Prescriptions: Valacyclovir HCl [Valtrex] 1,000 mg PO BID #14 tablet Patient Education Materials: Shingles (ED) Referrals: Jocelyne Vasquez MD [Primary Care Provider] - 7 Days - Billing Disposition and Condition Condition: STABLE Disposition: Home
== END 2018-07-14 08:45 | disposition home or self-care (01) ==
LOC: UCEAST 08:15
DX: B02.9 Zoster without complications (principal); Z88.5 Allergy status to narcotic agent; Z88.8 Allergy status to other drugs, medicaments and biological substances; Z88.1 Allergy status to other antibiotic agents; Z91.041 Radiographic dye allergy status; Z87.891 Personal history of nicotine dependence
CPT/HCPCS: 99212; G0463

== ENCOUNTER 2018-12-07 14:35 | Emergency (ER) | payer OTHER ==
[2018-12-07 16:04] VITALS: BP 110/74
--- NOTE | 2018-12-07 16:34 | ED ---
Upper Extremity Pain - HPI Summary HPI Summary: 42 year old female presents with right wrist pain for the past 4 days. she fell 4 days ago onto the wrist. pain is greatest on the ulnar side of her wrist. has limited ROM due to pain. no numbness or tingling. no previous fracture to the area. no elbow pain. is right handed. has history of MS. - History of Current Complaint Chief Complaint: UCUpperExtremity Stated Complaint: RT ARM INJURY Time Seen by Provider: 12/07/18 16:05 Hx Last Menstrual Period: 5 yrs ago - Allergies/Home Medications Allergies/Adverse Reactions: Allergies Allergy/AdvReac Type Severity Reaction Status Date / Time azithromycin Allergy GI Upset Verified 12/07/18 16:05 diphenhydramine Allergy Tachycardia Verified 12/07/18 16:05 gadoteridol Allergy Rash Verified 12/07/18 16:05 Iodinated Contrast- Oral and Allergy Rash Verified 12/07/18 16:05 IV Dye tramadol Allergy Nausea And Verified 12/07/18 16:05 Vomiting PMH/Surg Hx/FS Hx/Imm Hx Endocrine/Hematology History: Denies: Hx Anticoagulant Therapy, Hx Diabetes, Hx Thyroid Disease Cardiovascular History: Reports: Other Cardiovascular Problems/Disorders - mitral valve prolapse - followed by Jos - no issues Denies: Hx Hypertension, Hx Pacemaker/ICD Respiratory History: Reports: Hx Asthma, Hx Chronic Bronchitis, Hx Sleep Apnea - current CPAP user Denies: Hx Chronic Obstructive Pulmonary Disease (COPD) Comment Only: Other Respiratory Problems/Disorders - smoker, in process of quitting 07/2013 GI History: Reports: Hx Gastroesophageal Reflux Disease - no meds currently, Other GI Disorders - celiac disease Denies: Hx Cirrhosis, Hx Ulcer History: Denies: Hx Renal Disease Comment Only: Other Problems/Disorders - LEFT FLANK PAIN X 2 DAYS Musculoskeletal History: Reports: Hx Arthritis - hips/R.A. 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 Neurological History: Reports: Hx Headaches, Hx Migraine, Hx Nerve Disease - ms , Other Neuro Impairments/Disorders - MS Denies: Hx Dementia, Hx Seizures Psychiatric History: Reports: Hx Anxiety Denies: Hx Panic Disorder, Hx Substance Abuse - Cancer History Hx Chemotherapy: No Hx Radiation Therapy: No - Surgical History Surgery Procedure, Year, and Place: 2-C SECTIONS 1993 & 2001; 2009 HYSTERECTOMY , TUBES IN EARS, LEFT KNEE ARTHROSCOPIC SURGERY Infectious Disease History: Yes Infectious Disease History: Denies: Hx Clostridium Difficile, Hx Hepatitis, Hx Human Immunodeficiency Virus (HIV), Hx of Known/Suspected MRSA, Hx Shingles, Hx Tuberculosis, Hx Known/ Suspected VRE, Hx Known/Suspected VRSA, History Other Infectious Disease, Traveled Outside the [place] in Last 30 Days - Family History Known Family History: Positive: Hypertension, Respiratory Disease - Asthma, Other - CHOLESTEROL - Social History Alcohol Use: None Hx Substance Use: No Substance Use Type: Reports: None Substance Use Comment - Amount & Last Used: MARINOL Hx Tobacco Use: Yes - not currently Smoking Status (MU): Former Smoker Have You Smoked in the Last Year: No Review of Systems Negative: Fever Negative: Chest Pain Negative: Shortness Of Breath Positive: Myalgia - right wrist pain All Other Systems Reviewed And Are Negative: Yes Physical Exam Triage Information Reviewed: Yes Vital Signs On Initial Exam: Initial Vitals Temp Pulse Resp BP Pulse Ox 98.0 F 74 20 110/74 98 12/07/18 16:00 12/07/18 16:00 12/07/18 16:00 12/07/18 16:00 12/07/18 16:00 Vital Signs Reviewed: Yes Appearance: Positive: Well-Appearing Skin: Positive: Warm, Dry Head/Face: Positive: Normal Head/Face Inspection Eyes: Positive: Normal, Conjunctiva Clear ENT: Positive: Pharynx normal Respiratory/Lung Sounds: Positive: Clear to Auscultation, Breath Sounds Present Cardiovascular: Positive: Normal, RRR Musculoskeletal: Positive: Limited @ - radial and ulnar deviation with pain right wrist, Other - tenderness over ulnar aspect of wrist. neg snuff box tenderness, good pulses, sensation grossly intact. nontender elbow Neurological: Positive: Normal Psychiatric: Positive: Normal Diagnostics - Vital Signs Vital Signs Temp Pulse Resp BP Pulse Ox 12/07/18 16:00 98.0 F 74 20 110/74 98 - Laboratory Lab Statement: Any lab studies that have been ordered have been reviewed, and results considered in the medical decision making process. - Radiology wrist Radiology Interpretation Completed By: Radiologist Summary of Radiographic Findings: REPORT AND IMPRESSION: #. Mild nonfocal soft tissue swelling. Negative for fracture or malalignment. Preserved. joint spaces. Course/Dx - Course Course Of Treatment: 42 year old female presents with right wrist pain for the past 4 days. she fell 4 days ago onto the wrist. pain is greatest on the ulnar side of her wrist. has limited ROM due to pain. no numbness or tingling. no previous fracture to the area. no elbow pain. is right handed. has history of MS. on exam has tenderness over ulnar aspect of wrist. neurovascular intact. limited ulnar and radial deviation. xray shows no fracture. will give wrist splint. told to practice RICE. told to follow up with ortho if no improvement. patient understand and agrees with plan. - Diagnoses Differential Diagnosis/HQI/PQRI: Positive: Fracture (Closed), Strain, Sprain Provider Diagnoses: Right wrist pain Discharge - Sign-Out/Discharge Documenting (check all that apply): Patient Departure All imaging exams completed and their final reports reviewed: Yes - Discharge Plan Condition: Good Disposition: HOME Patient Education Materials: Wrist Sprain (ED) Referrals: Jocelyne Vasquez MD [Primary Care Provider] - Scott Lipscomb MD [Medical Doctor] - Additional Instructions: use splint as needed Ice, elevate, Ibuprofen or Tylenol every 6 hours for pain Follow up with ortho if no improvement Return to ED if develop or any new or worsening symptoms - Billing Disposition and Condition Condition: GOOD Disposition: Home - Attestation Statements Provider Attestation: I was available for consult. This patient was seen by the [facility]. The patient was not presented to, seen by, or examined by me. -Yaritza
== END 2018-12-07 17:00 | disposition home or self-care (01) ==
LOC: UCEAST 14:35
DX: M25.531 Pain in right wrist (principal); Z88.5 Allergy status to narcotic agent; Z88.8 Allergy status to other drugs, medicaments and biological substances; Z88.1 Allergy status to other antibiotic agents; Z91.041 Radiographic dye allergy status; Z87.891 Personal history of nicotine dependence
CPT/HCPCS: 99212; G0463

== ENCOUNTER 2019-03-20 11:51 | Emergency (ER) | payer OTHER ==
--- OUTSIDE RECORDS SUMMARY | 2019-03-20 11:56 | XMS REPORT | Continuity of Care Document ---
:1975 External Reference #:[id number] Author Name Cleve Hobbs, OD Address [address] [place] [address] Care Team Providers Name Role Phone MD Dayo, Kathia Care Team Information Professor Of Religion Unavailable MD Dayo, Kathia Primary Care Physician Unavailable Payers Date Identification Numbers Payment Provider Subscriber Policy Number: [id number] [facility] Kellen Luu PayID: [id number] [address] [address] [place] [address] Problems Active Problems Provider Date Type 2 diabetes mellitus Onset: 04/14/2014 Type 2 diabetes mellitus Cristian Santiago M.D. 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 Onset: 05/24/2014 Regular astigmatism Cleve Werner O.D. Onset: 04/15/2014 Myopia Cleve Werner O.D. Onset: 04/15/2014 Borderline glaucoma Cleve Werner O.D. Onset: 04/15/2014 Optic neuritis Cleve Werner O.D. Onset: 04/15/2014 Atopic dermatitis Kathy Uriostegui MD Onset: 04/13/2013 Tricuspid valve disorder, non-rheumatic Nikko Isidro MD Onset: 2012 Supraventricular premature beats Valeri Arguello MD Onset: 01/04/2014 Sprain of foot Clint Ulloa MD Onset: 05/31/2013 Obesity Kathy Uriostegui MD Onset: 04/13/2013 Multiple sclerosis Kathy Uriostegui MD Onset: 04/13/2013 Mixed hyperlipidemia Kathy Uriostegui MD Onset: 04/13/2013 Mitral valve disorder Nikko Isidro MD Onset: 04/13/2013 Kidney stone Clint Ulloa MD Onset: 02/07/2015 Family History Date Family Member(s) Observation Comments General Glaucoma brother Mother High BP Social History Type Date Description Comments Sex Unknown ETOH Use Never used alcohol Tobacco Use Start: Unknown End: Unknown Patient is a former smoker Smoking Status Reviewed: 03/10/19 Patient is a former smoker Allergies, Adverse Reactions, Alerts Active Allergies Reaction Severity Comments Date Penicillin 04/15/2014 Medications Active Medications SIG Qnty Indications Ordering Provider Date Dramamine 30tabs H81.10 Parul Watts, 06/30/2018 50mg Tablets STOVE [employer]ER Voltaren 200units Z79.899 Jc Fernandes, 05/18/2018 1% Gel Ra Krill Oil 90caps Z79.899 Jc Fernandes, 11/17/2017 500mg MD Capsules Rebif 12units Joaquín Tee MD 07/08/2016 44mcg/0.5ML Soln Prefill Syringe Baclofen 60tabs M51.16 Joaquín Tee MD 05/03/2016 10mg Tablets Omeprazole 30caps Parul Watts, 09/27/2014 40mg STOVE T[employer]ER Capsules Alpzolam 30tabs Parul Watts, 09/24/2013 0.25mg STOVE TENDER Tablets Ventolin HFA 18units J20.9 Parul Watts, 07/15/2013 STOVE TENDER 108(90Base) mcg/Act Aerosol Vitamin D Unknown 1000Unit Tablets Advil Unknown 200mg Tablets Lyrica Unknown 50mg Capsules Oxycodone-Acetaminoph Unknown en 5-325mg Tablets Proair HFA Parul Watts, 108(90Base) STOVE TENDER mcg/Act Aerosol Meloxicam Parul Watts, 7.5mg Tablets STOVE T[employer]ER Escitalopram Oxalate Parul Watts, STOVE TENDER 20mg Tablets Baclofen take 1 tablet Unknown 10mg Tablets by mouth three times a day Metformin HCL Jevon Coronel MD 500mg Tablets Acarbose Jevon Coronel MD 25mg Tablets Dronabinol take 1 tablet Unknown 2.5mg by mouth twice Capsules a day if needed for pain Max 2/Day Accu-Chek Naye Plus Law HOBSON, Jevon Strips Diazepam Nay HOBSON, Joaquín 5mg Tablets Lidocaine HCL Unknown 3% Cream History Medications Fluorometholone 1gtt qid OD 10ml Cleve Hobbs, 07/08/2018 - 0.1% Suspension OD 02/08/2019 Tobramycin-Dexamethasone 1 drop qid OD x 1 5ml Cleve Hobbs, 06/30/2018 - week OD 02/08/2019 0.3-0.1% Suspension Benzonatate Parul Watts, - 100mg Capsules STOVE [employer]ER 12/13/2016 Amoxicillin/Clavulanate Parul Watts, - Potassium STOVE TENDER 12/13/2016 400-57mg/5ML Suspension Rec Prednisone take as directed Unknown - 10mg Tablets 01/22/2018 Tramadol HCL Unknown - 50mg Tablets 12/13/2016 Omeprazole Parul Watts, - 40mg Capsules DR BRISCOE 02/08/2019 Amoxicillin Unknown - 500mg Capsules 05/24/2014 Ozzy Tee MD, - 44mcg/0.5ML Solution Joaquín 02/08/2019 Ozzy Tee MD, - 22mcg/0.5ML Solution Joaquín 02/08/2019 Alprazolam Parul Watts, - 0.25mg Tablets STOVE [employer]ER 02/08/2019 Immunizations CPT Code Status Date Vaccine Lot # [id number] Given 06/18/2018 Tetanus, Diphtheria Toxoids/Acellular Pertussis Vaccine 7 Or > Vital Signs Date Vital Result Comment 02/08/2019 12:49pm Intraocular Pressure Right Eye 17 mmHg Intraocular Pressure Left Eye 17 mmHg 07/08/2018 11:29am Intraocular Pressure Right Eye 17 mmHg 07/03/2018 11:48am Intraocular Pressure Right Eye 16 mmHg 06/30/2018 11:30am Intraocular Pressure Right Eye 17 mmHg Intraocular Pressure Left Eye 17 mmHg 05/05/2018 2:02pm Intraocular Pressure Right Eye 16 mmHg Intraocular Pressure Left Eye 16 mmHg 01/22/2018 11:02am Intraocular Pressure Right Eye 16 mmHg Intraocular Pressure Left Eye 16 mmHg 12/13/2016 2:24pm Intraocular Pressure Right Eye 18 mmHg Intraocular Pressure Left Eye 19 mmHg 05/26/2015 8:26am Intraocular Pressure Right Eye 13 mmHg Intraocular Pressure Left Eye 13 mmHg 02/23/2015 11:46am Intraocular Pressure Right Eye 17 mmHg Intraocular Pressure Left Eye 17 mmHg 05/24/2014 10:18am Intraocular Pressure Right Eye 19 mmHg Intraocular Pressure Left Eye 19 mmHg 04/15/2014 9:09am Intraocular Pressure Right Eye 16 mmHg Intraocular Pressure Left Eye 16 mmHg Results Test Date Facility Test Result H/L Range Note Laboratory test finding 06/27/2018 [email or web address] Import Ferritin 57.4 ng/mL 11 -307 1 Hemoglobin A1c (Glyco HGB) 5.3 % 4.0-5.6 2 Vitamin B12 357 pg/mL 180-914 3 Vitamin D Total 25(Oh) 34.2 ng/mL 20-50 4 CBC Auto Diff 06/27/2018 [employer] Import Abs Basophils 0 10^3/uL 0-0.2 Abs Eosinophils 0.1 10^3/uL 0-0.6 Abs Lymphocytes 1.6 10^3/uL 1.0-4.8 Abs Monocytes 0.4 10^3/uL 0-0.8 Abs Neutrophils 2.4 10^3/uL 1.5-7.7 Abs Nucleated RBC 0 10^3/uL Basophil % 1.1 % 0-2 Eosinophil % 2.4 % 0-6 Granulocyte % 51.9 % 38-83 Hematocrit 42 % 35-47 Hemoglobin 14.0 g/dL 12.0-16.0 Lymphocyte % 36.3 % 25-47 Mean Corpuscular HGB Conc 34 g/dL 31-36 Mean Corpuscular Hemoglobin 28 pg 27-31 Mean Corpuscular Volume 84 fL 80-97 Mean Platelet Volume 8.6 um3 7.4-10.4 Monocyte % 8.3 % High 0-7 Nucleated Red Blood Cells % 0.1 1 Platelet Count 253 10^3/uL 150-450 Red Blood Count 4.96 10^6/uL 4.00-5.40 Red Cell Distribution Width 14 % 10.5-15 White Blood Count 4.5 10^3/uL 3.5-10.8 Iron & Iron Binding 06/27/2018 [email or web address] Import % Iron Saturation 20 % 15- 55 Capacity Iron 91 g/dL 50-212 Total Iron Binding Capacity 451 g/dL High 250-450 Transferrin 322 mg/dL 203-362 Unsaturated Iron Binding 360 g/dL Lipid Profile (Trig/Chol/HDL) 06/27/2018 [facility] Import Cholesterol 234 mg/ dL 5 HDL Cholesterol 51.4 mg/dL 6 LDL Cholesterol 150 mg/dL 7 Triglycerides 162 mg/dL 8 Laboratory test finding 06/04/2018 [facility] Import Albumin 4.3 g/dL 3.2- 5.2 Albumin/Globulin Ratio 1.9 1 1-3 Alkaline Phosphatase 90 U/L 34-104 Alt 28 U/L 7-52 Anion Gap 6 mmol/L 2-11 Ast 21 U/L 13-39 BUN/Creatinine Ratio 23.8 1 High 8-20 Blood Urea Nitrogen 15 mg/dL 6-24 Calcium 9.2 mg/dL 8.6-10.3 Chloride 104 mmol/L 101-111 Co2 Carbon Dioxide 30 mmol/L 22-32 Creatinine 0.63 mg/dL 0.51-0.95 Egfr 126.0 1 >60 9 Egfr Non- 104.1 1 >60 Globulin 2.3 g/dL 2-4 Glucose 88 mg/dL 70-100 Potassium 4.2 mmol/L 3.5-5.0 Sodium 140 mmol/L 135-145 Total Bilirubin 1.20 mg/dL High 0.2-1.0 Total Protein 6.6 g/dL 6.4-8.9 CBC Auto Diff 06/04/2018 [facility] Abs Basophils 0.1 10^3/uL 0-0.2 Abs Eosinophils 0.1 10^3/uL 0-0.6 Abs Lymphocytes 1.8 10^3/uL 1.0-4.8 Abs Monocytes 0.4 10^3/uL 0-0.8 Abs Neutrophils 4.0 10^3/uL 1.5-7.7 Abs Nucleated RBC 0 10^3/uL Basophil % 0.8 % 0-2 Eosinophil % 1.8 % 0-6 Granulocyte % 62.5 % 38-83 Hematocrit 40 % 35-47 Hemoglobin 13.3 g/dL 12.0-16.0 Lymphocyte % 28.4 % 25-47 Mean Corpuscular HGB Conc 33 g/dL 31-36 Mean Corpuscular Hemoglobin 28 pg 27-31 Mean Corpuscular Volume 85 fL 80-97 Mean Platelet Volume 8.8 um3 7.4-10.4 Monocyte % 6.5 % 0-7 Nucleated Red Blood Cells % 0 1 Platelet Count 272 10^3/uL 150-450 Red Blood Count 4.71 10^6/uL 4.00-5.40 Red Cell Distribution Width 14 % 10.5-15 White Blood Count 6.4 10^3/uL 3.5-10.8 Laboratory test 05/18/2018 [facility] Import MRSA Screen See Result Below 10 finding 1 FASTING 10 HOUR 2 Therapeutic target for the treatment of diabetes mellitus patients is <7% HBA1C, and in selective patients <6.0%. Please refer to [place] [employer] diabetic care guidelines for further information. 3 Normal Range 180 to 914 Indeterminate Range 145 to 180 Deficient Range <145 4 FASTING 10 HOUR 5 Desirable: <200 Borderline High: 200-239 High: >239 6 Low: <40 Desirable: 40-60 High: >60 7 Desirable: <100 Near Optimal: 100-129 Borderline High: 130-159 High: 160-189 Very High: >189 8 Desirable: <150 Borderline High: 150-199 High: 200-499 Very High: >500 9 Because ethnic data is not always readily available, this report includes an eGFR for both -Americans and non- Americans. The National Kidney Disease Education Program (NKDEP) does not endorse the use of the MDRD equation for patients that are not between the ages of 18 and 70, are , have extremes of body size, muscle mass, or nutritional status, or are non- or non-. According to the National Kidney Foundation, irrespective of diagnosis, the stage of the disease is based on the level of kidney function: Stage Description GFR(mL/min/1.73 m(2)) 1 Kidney damage with normal or decreased GFR 90 2 Kidney damage with mild decrease in GFR 60-89 3 Moderate decrease in GFR 30-59 4 Severe decrease in GFR 15-29 5 Kidney failure <15 (or dialysis) 10 SEE RESULT BELOW Name: KELLEN LUU : [address]: Jc Fernandes MD Acct: [id number] Unit: [id number] AGE: 42 Location: LAB Re05/18/18 SEX: F Status: REG REF SPEC: [id number] WILLIAM: 05/18/18-[address]: Jc Fernandes MD REQ: [id number] RECD: 05/18/18 STATUS: COMP _ SOURCE: NASAL SPDESC: ORDERED: MRSA PCR-Nasal Procedure Result Reported Site MRSA PCR (Nasal) Final 05/18/18- 1144 ML Organism 1 MRSA NOT DETECTED * - Main Lab . END OF REPORT DEPARTMENT OF PATHOLOGY, [address] [place] [address] Mumtaz Marti M.D. Director [facility] # [id number] Procedures Date Code Description Status 02/08/2019 35711 Fundus Photography W/Interpretation & Report Completed 02/08/2019 36371 Refraction Completed 02/08/2019 68947 Eye Exam Est Intermediate Completed 05/05/2018 66130 Visual Field Exam Extended, Unilateral Or Bilateral Completed 05/05/2018 93831 Refraction Completed 05/05/2018 77709 Eye Exam Est Intermediate Completed 01/22/2018 23205 Ophthalmoscopy Subsequent Completed 01/22/2018 82746 Oct, Optic Nerve Completed 01/22/2018 71078 Eye Exam Est Intermediate Completed 12/13/2016 83880 Eye Exam Est Comprehensive Completed 12/13/2016 46868 Ophthalmoscopy Subsequent Completed 12/13/2016 55863 Fundus Photography W/Interpretation & Report Completed 05/26/2015 42586 Oct, Optic Nerve Completed 05/26/2015 15678 Refraction Completed 05/26/2015 62052 Eye Exam Est Comprehensive Completed 02/23/2015 42276 Visual Field Exam Extended, Unilateral Or Bilateral Completed 02/23/2015 69744 Eye Exam Est Intermediate Completed 05/24/2014 71485 Visual Field Exam Extended, Unilateral Or Bilateral Completed 05/24/2014 08007 Eye Exam Est Intermediate Completed 04/15/2014 02968 Refraction Completed 04/15/2014 74931 Eye Exam Est Comprehensive Completed 03/04/2011 08602 Corneal Pachymetry, Unilateral/Bilateral Completed 03/04/2011 52124 Eye Exam Est Intermediate Completed 03/04/2011 14109 Gonioscopy Completed 03/04/2011 82679 Visual Field Exam Extended, Unilateral Or Bilateral Completed 01/28/2011 89197 Fundus Photography W/Interpretation & Report Completed 01/28/2011 49103 Refraction Completed 01/28/2011 28372 Eye Exam Est Comprehensive Completed 03/15/2010 81767 Ophthalmoscopy Subsequent Completed 03/15/2010 02584 Refraction Completed 03/15/2010 96018 Eye Exam Est Comprehensive Completed 06/30/2008 85240 Visual Field Exam Extended, Unilateral Or Bilateral Completed 06/30/2008 01420 Eye Exam Est Intermediate Completed 06/13/2008 84019 Eye Exam Est Comprehensive Completed 06/13/2008 66937 Ophthalmoscopy Subsequent Completed 06/13/2008 36366 Fundus Photography W/Interpretation & Report Completed 05/05/2007 73162 Fundus Photography W/Interpretation & Report Completed 05/05/2007 47937 Eye Exam Est Comprehensive Completed 10/23/2006 28219 Visual Field Exam Extended, Unilateral Or Bilateral Completed 10/23/2006 97849 Eye Exam Est Intermediate Completed 09/22/2006 62929 Ophthalmoscopy Initial Completed 09/22/2006 66731 Gonioscopy Completed 09/22/2006 39466 Refraction Completed 09/22/2006 47852 Eye Exam New Comprehensive Completed 09/22/2006 19696 Corneal Pachymetry, Unilateral/Bilateral Completed Encounters Type Date Location Provider Dx Diagnosis Office Visit 07/08/2018 11:15a Main Office Cleve Hobbs, OD G35 Multiple sclerosis H10.89 Other conjunctivitis Office Visit 07/03/2018 9:15a Main Office Cleve Hobbs H10.89 Other conjunctivitis OD Office Visit 06/30/2018 11:15a Main Office Cleve Hobbs, H10.89 Other conjunctivitis OD Office Visit 02/20/2011 1:00p Main Office Cristian 372.14 Conjunctivitis Magnus Santiago. Chronic Allergic Other Plan of Treatment 03/10/2019 - Cleve Hobbs, ODH40.013 Open angle with borderline findings, low risk, bilateralFollow up:01/2020 full, sooner PRN
[2019-03-20 11:58] VITALS: BP 121/72
--- NOTE | 2019-03-20 12:03 | UC ---
Hand/Wrist HPI - HPI Summary HPI Summary: 43 y/o female presents to the urgent care c/o left wrist pain and left thumb decrease ROM and mild swelling for the past 2 weeks. 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 She has noticed sometimes base of thumb becomes swollen at times. She has taken Advil PO to alleviate symptoms . Pain today is better, localized on the medial aspect of her wrist and at the base of thumb w/o any radiation. Since Hx of MS she wants to r/o fracture. Pt denies numbness or tingling sensation over the left thumb or wrist, SOB, chest pain, fever, abdominal pain, N/V/D. - History Of Current Complaint Chief Complaint: UCUpperExtremity Stated Complaint: HAND PAIN Time Seen by Provider: 03/20/19 12:01 Hx Obtained From: Patient Hx Last Menstrual Period: 5 yrs ago ?: No - Hx of Hysterectomy Onset/Duration: Gradual Onset, Lasting Weeks - 2 weeks, Still Present Severity Initially: Mild Severity Currently: Moderate Pain Intensity: 5 Pain Scale Used: 0-10 Numeric Character Of Pain: Aching Aggravating Factor(s): Lifting, Flexion - of left thumb w/ mild swelling Alleviating Factor(s): Rest, OTC Meds Associated Signs And Symptoms: Positive: Swelling - mild at the base of the left thumb. Negative: Redness, Bruising, Fever, Numbness/Tingling Related History: Dominant Hand Right - Allergies/Home Medications Allergies/Adverse Reactions: Allergies Allergy/AdvReac Type Severity Reaction Status Date / Time azithromycin Allergy GI Upset Verified 03/20/19 11:58 diphenhydramine Allergy Tachycardia Verified 03/20/19 11:58 gadoteridol Allergy Rash Verified 03/20/19 11:58 Iodinated Contrast- Oral and Allergy Rash Verified 03/20/19 11:58 IV Dye tramadol Allergy Nausea And Verified 03/20/19 11:58 Vomiting PMH/Surg Hx/FS Hx/Imm Hx Previously Healthy: Yes Endocrine History: Diabetes Other Endocrine History: RA Other Neurological History: MS Other History Of: Negative For: Anticoagulant Therapy - Surgical History Surgical History: Yes Surgery Procedure, Year, and Place: 2-C SECTIONS 1993 & 2001; 2009 HYSTERECTOMY , TUBES IN EARS, LEFT KNEE ARTHROSCOPIC SURGERY - Family History Known Family History: Positive: Hypertension, Respiratory Disease - Asthma, Other - CHOLESTEROL - Social History Occupation: Employed Full-time Lives: With Family Alcohol Use: None Substance Use Type: None Substance Use Comment - Amount & Last Used: MARINOL Smoking Status (MU): Former Smoker Have You Smoked in the Last Year: No When Did the Patient Quit Smoking/Using Tobacco: 2012 - Immunization History Most Recent Influenza Vaccination: 08/02 Most Recent Tetanus Shot: 10 years ago Review of Systems All Other Systems Reviewed And Are Negative: Yes Constitutional: Positive: Negative Skin: Positive: Negative Eyes: Positive: Negative ENT: Positive: Negative Respiratory: Positive: Negative Cardiovascular: Positive: Negative Gastrointestinal: Positive: Negative Genitourinary: Positive: Negative Motor: Positive: Negative Neurovascular: Positive: Negative Musculoskeletal: Positive: Decreased ROM - left thumb, Other: - left wrist pain and mild swelling at the base of left thumb Neurological: Positive: Negative Psychological: Positive: Negative Is Patient Immunocompromised?: No Physical Exam - Summary Physical Exam Summary: Vital Signs Reviewed: Yes General: Well-Appearing, No Pain Distress, Well-Nourished - female w/o any apparent distress Eyes: Positive: Conjunctiva Clear - PERRLA, EOMI ENT: Positive: Normal ENT inspection, Hearing grossly normal, Pharynx normal, TMs normal, Uvula midline Neck: Positive: Supple, Nontender, No Lymphadenopathy Respiratory: Positive: Chest non-tender, Lungs clear, Normal breath sounds, No respiratory distress Cardiovascular: Positive: RRR, No Murmur, Pulses Normal, Brisk Capillary Refill Abdomen Description: Positive: Nontender, No Organomegaly, Soft. Negative: CVA Tenderness (R), CVA Tenderness (L) Bowel Sounds: Positive: Present Musculoskeletal: Positive: Strength Intact, Other: Neurological Exam: Normal Musculoskeletal: Positive: Wrist: the LF wrist is without obvious asymmetry or deformity when compared to the R wrist. No surface trauma, open wounds, mild soft tissue swelling at first PIPJ w/ tenderness to palpation and decrease ROM of left thumb, no obvious deformity. No overlying erythema or warmth. No bony crepitus. Point tenderness over the thenar eminence and ventral side of wrist. No scaphoid fullness or tenderness to direct palpation or axial load. Decreased ROM due to pain. Motor/sensory function of ulnar, radial, median nerves intact. Ulnar and radial pulses intact. Negative Phalens/Tinels sign. Negative Sapna test Psychological Exam: Normal Skin Exam: Normal Triage Information Reviewed: Yes Vital Signs: Initial Vital Signs Temp 98.6 F 03/20/19 11:54 Pulse 67 03/20/19 11:54 Resp 18 03/20/19 11:54 BP 121/72 03/20/19 11:54 Pulse Ox 100 03/20/19 11:54 Hand/Wrist Course/Dx - Course Course Of Treatment: 43 y/o female presents to the urgent care c/o left wrist pain and left thumb decrease ROM and mild swelling for the past 2 weeks. 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 She has noticed sometimes base of thumb becomes swollen at times. She has taken Advil PO to alleviate symptoms . Pain today is better, localized on the medial aspect of her wrist and at the base of thumb w/o any radiation. Since Hx of MS she wants to r/o fracture. Pt denies numbness or tingling sensation over the left thumb or wrist, SOB, chest pain, fever, abdominal pain, N/V/D. Hx obtained. LF wrist X-ray ordered. Impression: Normal radiograph of the left wrist. If the patient's symptoms persist, follow-up imaging is recommended. Probably a left wrist tendonitis or a flare up of her RA. Pts wrist immobilized with thumb spica splint. Advised RICE: Rest, immerse her wrist in ice water Ice, elevation, continue w/ Ibuprofen PO. There was no neurovascular compromise after splint application placed by nurse; the splint was in good alignment and the pt had good sensation and capillary refill at the time of discharge.Pt advised to f/u w/ Orthopedic Dr Patel if not improvement of symptoms in 1 week. Pt understood and agreed w/ plan of care. - Differential Dx/Diagnosis Differential Diagnosis/HQI/PQRI: Carpal Tunnel Syndrome, Fracture, Sprain, Strain, Tendonitis, Tenosynovitis Provider Diagnosis: Left wrist pain, Tendinitis of left wrist Discharge - Sign-Out/Discharge Documenting (check all that apply): Patient Departure - d/c home All imaging exams completed and their final reports reviewed: Yes - Discharge Plan Condition: Stable Disposition: HOME Patient Education Materials: Tendinitis (ED) Referrals: Jocelyne Vasquez MD [Primary Care Provider] - 3 Days Anjali Patel MD [Medical Doctor] - 1 Week Additional Instructions: 1-Please continue taken Ibuprofen PO w6-8hrs prs after meals as directed to alleviate pain and swelling. 2-Please apply ice, keep your wrist immobilized with the splint. Avoid heavy lifting or too much flexion. 3- Please f/u with Orthopedic Dr Patel or your PCP in 1 week is not improvement of symptoms for further evaluation and treatment. - Billing Disposition and Condition Condition: STABLE Disposition: Home
== END 2019-03-20 13:08 | disposition home or self-care (01) ==
LOC: UCEAST 11:51
DX: M77.9 Enthesopathy, unspecified (principal)
CPT/HCPCS: 99213; G0463

== ENCOUNTER 2019-06-25 12:39 | Emergency (ER) | payer OTHER ==
--- NOTE | 2019-06-25 12:47 | UC ---
Hand/Wrist HPI - HPI Summary HPI Summary: 43 yo female presents with RIGHT index finger injury. She tells me that on 06/21 she jammed her right index finger. Since that time has had pain in the DIP joint with movement and to touch. She has taken ibuprofen and applied ice with no relief. She is right handed. - History Of Current Complaint Stated Complaint: FINGER INJURY Time Seen by Provider: 06/25/19 12:47 Hx Obtained From: Patient Hx Last Menstrual Period: 5 yrs ago Onset/Duration: Sudden Onset Severity Initially: Moderate Severity Currently: Moderate Pain Intensity: 5 Pain Scale Used: 0-10 Numeric - Allergies/Home Medications Allergies/Adverse Reactions: Allergies Allergy/AdvReac Type Severity Reaction Status Date / Time gadoteridol Allergy Severe SEVERE SEE Verified 06/25/19 12:50 COMMENT azithromycin Allergy GI Upset Verified 06/25/19 12:50 diphenhydramine Allergy Tachycardia Verified 06/25/19 12:50 Iodinated Contrast Media Allergy Rash Verified 06/25/19 12:50 [Iodinated Contrast- Oral and IV Dye] tramadol Allergy Nausea And Verified 06/25/19 12:50 Vomiting PMH/Surg Hx/FS Hx/Imm Hx Endocrine History: Diabetes Psychological History: Anxiety, Depression Other History Of: Negative For: Anticoagulant Therapy - Surgical History Surgical History: Yes Surgery Procedure, Year, and Place: 2-C SECTIONS 1993 & 2001; 2009 HYSTERECTOMY , TUBES IN EARS, LEFT KNEE ARTHROSCOPIC SURGERY - Family History Known Family History: Positive: Hypertension, Respiratory Disease - Asthma, Other - CHOLESTEROL - Social History Lives: With Family Alcohol Use: None Substance Use Type: None Substance Use Comment - Amount & Last Used: MARINOL Smoking Status (MU): Former Smoker Have You Smoked in the Last Year: No When Did the Patient Quit Smoking/Using Tobacco: 2012 - Immunization History Most Recent Influenza Vaccination: 08/02 Most Recent Tetanus Shot: 10 years ago Review of Systems All Other Systems Reviewed And Are Negative: No Constitutional: Positive: Negative Skin: Positive: Negative Respiratory: Positive: Negative Cardiovascular: Positive: Negative Musculoskeletal: Positive: Other: - Right index finger pain Neurological: Positive: Negative Psychological: Positive: Negative Physical Exam - Summary Physical Exam Summary: GENERAL: NAD. WDWN. No pain distress. SKIN: No rashes, sores, lesions, or open wounds. CHEST: No accessory muscle use. Breathing comfortably and in no distress. CV: Pulses intact radial and ulnar. Cap refill <2seconds MSK: RIGHT INDEX FINGER: FROM, but pain at DIP with flexion. Mild TTP about DIP joint. No edema or obvious bony deformity. FROM and NTTP at PIP and MCP NEURO: Alert. Sensations intact hand and all fingers. PSYCH: Age appropriate behavior. Triage Information Reviewed: Yes Vital Signs: Vital Signs: Temp Pulse Resp BP Pulse Ox 97.9 F 68 18 116/75 97 06/25/19 12:53 06/25/19 12:53 06/25/19 12:53 06/25/19 12:53 06/25/19 12:53 Vital Signs Reviewed: Yes Diagnostics - Radiology Finger Radiology Interpretation Completed By: Radiologist Summary of Radiographic Findings: IMPRESSION: NO ACUTE OSSEOUS INJURY. IF SYMPTOMS PERSIST, RECOMMEND REPEAT IMAGING. Hand/Wrist Course/Dx - Course Course Of Treatment: XR negative. Suspect muscle strain. Pt was placed in a finger splint and advised to rest and continue NSAID therapy. If symptoms do not improve - f/u with Orthopedics - Differential Dx/Diagnosis Provider Diagnosis: Finger sprain Discharge ED - Sign-Out/Discharge Documenting (check all that apply): Patient Departure All imaging exams completed and their final reports reviewed: No Studies - Discharge Plan Condition: Stable Disposition: HOME Patient Education Materials: Finger Sprain (ED) Referrals: Jocelyne Vasquez MD [Primary Care Provider] - Brett Mulligan MD [Medical Doctor] - If Needed Additional Instructions: If you develop a fever, shortness of breath, chest pain, new or worsening symptoms - please call your PCP or go to the ED immediately. The X-Rays were normal today 1) Rest and Ice your finger intermittently throughout the day 2) Use the finger splint as much as possible 3) If your symptoms have not improved in 3-5 days, please call Orthopedics at the number below to schedule an appointment for further evaluation - Billing Disposition and Condition Condition: STABLE Disposition: Home
[2019-06-25 12:56] VITALS: BP 116/75
== END 2019-06-25 13:45 | disposition home or self-care (01) ==
LOC: UCEAST 12:39
DX: S63.610A Unspecified sprain of right index finger, initial encounter (principal); W23.0XXA Caught, crushed, jammed, or pinched between moving objects, initial encounter; Y92.9 Unspecified place or not applicable; E11.9 Type 2 diabetes mellitus without complications; Z88.5 Allergy status to narcotic agent; Z88.8 Allergy status to other drugs, medicaments and biological substances; Z88.1 Allergy status to other antibiotic agents; Z91.041 Radiographic dye allergy status; Z87.891 Personal history of nicotine dependence
CPT/HCPCS: 73140; 99211; G0463

== ENCOUNTER 2019-07-04 07:49 | Emergency (ER) | payer OTHER ==
[2019-07-04 08:02] VITALS: BP 110/73
--- NOTE | 2019-07-04 08:18 | UC ---
Back Pain HPI - HPI Summary HPI Summary: patient fell 4 day ago going down stairs in house. felt immediate pain tailbone area. has gottn prgressively more painful. feels swollen on R buttock. very painful to sit or bend forward. denies weakness in legs (other than from MS) has tries no treatment thus far - History of Current Complaint Chief Complaint: UCBackPain Stated Complaint: TAILBONE INJURY Time Seen by Provider: 07/04/19 08:04 Hx Obtained From: Patient Hx Last Menstrual Period: 5 yrs ago Onset/Duration: Sudden Onset Timing: Constant Severity Initially: Severe Severity Currently: Moderate Pain Intensity: 6 Back Pain: Is Discrete @ - tailbone Aggravating Factor(s): Bending, Other - sitting Alleviating Factor(s): Position Associated Signs And Symptoms: Positive: Swelling. Negative: Bladder Incontinence, Bowel Incontinence - Allergies/Home Medications Allergies/Adverse Reactions: Allergies Allergy/AdvReac Type Severity Reaction Status Date / Time gadoteridol Allergy Severe SEVERE SEE Verified 06/25/19 12:50 COMMENT azithromycin Allergy GI Upset Verified 06/25/19 12:50 diphenhydramine Allergy Tachycardia Verified 06/25/19 12:50 Iodinated Contrast Media Allergy Rash Verified 06/25/19 12:50 [Iodinated Contrast- Oral and IV Dye] tramadol Allergy Nausea And Verified 06/25/19 12:50 Vomiting PMH/Surg Hx/FS Hx/Imm Hx Previously Healthy: Yes Neurological History: Other - MS Psychological History: Anxiety Other History Of: Negative For: Anticoagulant Therapy - Surgical History Surgical History: Yes Surgery Procedure, Year, and Place: 2-C SECTIONS 1993 & 2001; 2009 HYSTERECTOMY , TUBES IN EARS, LEFT KNEE ARTHROSCOPIC SURGERY - Family History Known Family History: Positive: Hypertension, Respiratory Disease - Asthma, Other - CHOLESTEROL - Social History Occupation: Disabled Lives: With Family Alcohol Use: None Substance Use Type: None Substance Use Comment - Amount & Last Used: MARINOL Smoking Status (MU): Former Smoker Have You Smoked in the Last Year: No When Did the Patient Quit Smoking/Using Tobacco: 2012 - Immunization History Most Recent Influenza Vaccination: 08/02 Most Recent Tetanus Shot: 10 years ago Review of Systems All Other Systems Reviewed And Are Negative: Yes Constitutional: Positive: Negative Skin: Positive: Bruising - tailbone area Respiratory: Positive: Negative Cardiovascular: Positive: Negative Genitourinary: Positive: Negative Musculoskeletal: Positive: Other: - tailbone pain Neurological: Positive: Negative Psychological: Positive: Negative Is Patient Immunocompromised?: No Physical Exam Triage Information Reviewed: Yes Appearance: Well-Appearing, No Pain Distress, Well-Nourished Vital Signs: Initial Vital Signs Temp 98.1 F 07/04/19 07:55 Pulse 66 07/04/19 07:55 Resp 16 07/04/19 07:55 BP 110/73 07/04/19 07:55 Pulse Ox 99 07/04/19 07:55 Vital Signs Reviewed: Yes Respiratory Exam: Normal Cardiovascular Exam: Normal Musculoskeletal: Positive: ROM Limited @ - d/t pain buttock area Psychological Exam: Normal Skin Exam: Other - small bluish contusion upper buttock cleft Diagnostics - Radiology No standard instances Radiology Interpretation Completed By: Radiologist - No fracture Back Pain Course/Dx - Differential Dx/Diagnosis Provider Diagnosis: Contusion Discharge ED - Sign-Out/Discharge Documenting (check all that apply): Patient Departure All imaging exams completed and their final reports reviewed: Yes - no fracture - Discharge Plan Condition: Stable Disposition: HOME Patient Education Materials: Contusion in Adults (ED) Referrals: Jocelyne Vasquez MD [Primary Care Provider] - 7 Days (if not improving) Additional Instructions: avoid pressure to tailbone when possible use tylenol or ibuprofen as directed for pain return if symptoms worsen or new problems develop - Billing Disposition and Condition Condition: STABLE Disposition: Home
== END 2019-07-04 09:11 | disposition home or self-care (01) ==
LOC: UCEAST 07:49
DX: S30.0XXA Contusion of lower back and pelvis, initial encounter (principal); W10.9XXA Fall (on) (from) unspecified stairs and steps, initial encounter; Y92.9 Unspecified place or not applicable; F41.9 Anxiety disorder, unspecified; G35 Multiple sclerosis; Z87.891 Personal history of nicotine dependence
CPT/HCPCS: 72220; 99211; G0463

== ENCOUNTER 2019-08-24 10:53 | Emergency (ER) | payer OTHER ==
--- OUTSIDE RECORDS SUMMARY | 2019-08-24 10:59 | XMS REPORT | Continuity of Care Document ---
:1975 External Reference #:[id number] Author Name Armand Lopez M.D. (transmitted by agent of provider Kerry Abreu ) Address [address] [place] [address], [place] [address] Care Team Providers Name Role Phone Parul Watts NP - Family Care Team Information Receiving Inspector [phone] Jocelyne Vasquez MD - Internal Care Team Information Receiving Inspector [phone] Medicine Problems Active Problems Provider Date Atopic dermatitis Kathy Uriostegui M.D. Onset: 04/13/2013 Mixed hyperlipidemia Kathy Uriostegui M.D. Onset: 04/13/2013 Obesity Kathy Uriostegui M.D. Onset: 04/13/2013 Multiple sclerosis Kathy Uriostegui M.D. Onset: 04/13/2013 Mitral valve disorder Nikko Isidro M.D. Onset: 04/13/2013 Tricuspid valve disorder, non-rheumatic Nikko Isidro M.D. Onset: 04/13 Sprain of foot Clint Ulloa M.D. Onset: 05/31/2013 Supraventricular premature beats Valeri Arguello M.D. Onset: 01/04/2014 Kidney stone Clint Ulloa M.D. Onset: 02/07/2015 Palpitations Valeri Arguello M.D. Onset: 11/30/2018 Dizziness and giddiness Valeri Arguello M.D. Onset: 11/30/2018 FH: Myocardial infarct in 1st degree male Valeri Arguello M.D. Onset: 2018 relative <55 years Rheumatoid arthritis Parul Watts, N.P. Onset: 01/04/2019 Current tear of lateral cartilage AND/OR Odessa Pierce MD Onset: 02/23/2019 meniscus of knee Knee joint effusion Odessa Pierce MD Onset: 02/23/2019 Premature beats Valeri Arguello M.D. Onset: 01/26/2019 Social History Type Date Description Comments Sex Unknown Tobacco Use Start: Unknown Former Cigarette Quit 07/2013 End: Unknown Smoker Smoking Status Reviewed: 07/30/19 Former Cigarette Quit 07/2013 Smoker ETOH Use Denies alcohol use Recreational Drug Use Denies Drug Use Tobacco Use Start: Unknown Patient is a former smoked cigarettes for End: Unknown smoker 9 years, quit 07/2013 Exercise Type/Frequency Exercises regularly treadmill daily Exercise Type/Frequency gym 1 x per day Allergies, Adverse Reactions, Alerts Active Allergies Reaction Severity Comments Date Antihistamines tachycardia 02/03/2013 MRI Contrast Dye redness swelling 02/03/2013 Adhesive ECG electroes. 01/26/2019 Tramadol Nausea/vomiting 07/07/2019 Medications Active Medications SIG Qnty Indications Ordering Date Provider Amoxicillin 1 three times a day 30caps J02.9 Armand Hartman 07/30/2019 500mg for 10 days Ildefonso Lopez Capsules Hydrocodone-Acetami take 1-2 tablets 20tabs M54.5 Sunny Calvillo NP 2018 nophen every 12 hours for 5-325mg pain. Tablets Donut Pillow Use while sitting 1units M53.3 Sunny Calvillo NP 07/07/2019 Nabumetone 1 tab by mouth 40tabs Jc Fernandes, 05/21/2019 500mg twice daily as M.D. Tablets needed for pain Qvar Redihaler 2 puff twice a day 31.8gm Parul Watts, 02/12/2019 N.P. 80mcg/Act Aerosol Fluticasone 2 sprays each 16units J45.901 Parul Watts, 12/17/2018 Propionate nostril daily as N.P. needed 50mcg/Act Suspension Wrist Splint use daily to help 2units Jc Fernandes, 10/28/2018 Misc with numbness and M.D. tingling in the right hand Dz code 782 Lidoderm 1 apply to affected 30units B02.23 Jc Fernandes, 07/22/2018 5% Patches area 12 hours on, M.D. 12 hours off for post herpetic neuralgia Voltaren apply 2 grams twice 200units Z79.899 Jc Fernandes, 05/18/2018 1% Gel daily as needed for M.D. pain to the hands or toe Krill Oil Rake-3 Take one 90caps Z79.899 Jc Dena, 11/17/2017 capsule/tablet M.D. 500mg Capsules daily by mouth Aspercreme apply twice daily 6units Jc Fernandes, 11/17/2017 W/Lidocaine to the painful M.D. 4% joints as needed Cream Glucosamine take one 90caps cJ Fernandes, 07/10/2017 Chondroitin 1500 capsule/tablet M.D. Complex Maximum daily by mouth Strength 1500Com Capsules Rebif inject under the 12units Joaquín Girno 07/08/2016 44mcg/0.5ML skin three times a Ildefonso Tee Soln Prefill week avoid freezing Syringe discard syringe after 1 dose Baclofen 1 by mouth twice a 60tabs M51.16 Joaquín Giron 05/03/2016 10mg day Ildefonso Tee Tablets Omeprazole 1 by mouth every 30caps Parul Watts, 09/27/2014 40mg day N.P. Capsules Alpzolam 1 by mouth every 8 30tabs Parul Watts, 09/24/2013 0.25mg hours as needed for N.P. Tablets anxiety/panic Ventolin HFA 1 to 2 inhalations 18units J20.9 Parul Watts, 07/15/2013 every 4 hours as N.P. 108(90Base) mcg/Act needed Aerosol Advil 2 to 4 tabs prn Unknown 200mg Tablets Multi Complete 1 cap po daily Unknown Capsules Vitamin D3 1 po qd Unknown 1000Unit Capsules Probiotic 1 by mouth every Unknown Capsules day Metformin HCL take one tablet by R73.01 Unknown 500mg mouth once daily Tablets with supper Fish Oil 1 by mouth twice a Unknown 1000mg day Capsules Clobetasol apply a small Unknown Propionate amount to effected 0.05% area twice per day, Ointment up to 8 weeks. hold if no pain or itching. History Medications Celebrex take one capsule/tablet 30caps Jc Fernandes, 04/27/2019 - 200mg daily by mouth as M.D. 05/21/2019 Capsules needed for pain, avoid ibuprofen and other nsaids Immunizations CPT Code Status Date Vaccine Reaction Lot # [id number] Given 06/18/2018 Tdap - No immediate reaction... [id number] Tetanus/Diptheria/Acellula r Pertussis Vital Signs Date Vital Result Comment 07/30/2019 10:52am Height 64 inches 5'4" Weight 185.00 lb Heart Rate 71 /min BP Systolic Sitting 108 mmHg BP Diastolic Sitting 73 mmHg Body Temperature 98.2 F BMI (Body Mass Index) 31.8 kg/m2 07/13/2019 8:20am Height 64 inches 5'4" Weight 189.00 lb Heart Rate 74 /min BP Systolic 116 mmHg BP Diastolic 82 mmHg Respiratory Rate 18 /min Body Temperature 97.6 F Pain Level 7 BMI (Body Mass Index) 32.4 kg/m2 Results Test Date Facility Test Result H/L Range Note Ua Routine 07/07/2019 Laboratory Director In House Ua Specific [place] 1.000 Ua PH 7 Ua Color yellow Ua Appera clear Ua WBC neg Ua Protein neg Ua Glucose normal Ua Ketones neg Ua Bilirubin neg Ua Urobilinogen norm Ua Nitrite neg Ua Occult Blood neg Laboratory test 04/27/2019 [facility] Lyme Screen Negative Negative finding [address] W/ [place] [address] WB [phone] Tick-Borne Panel 04/27/2019 [facility] Babesia Negative Negative PCR Blood [address] microti PCR [place], [place] [id number] [phone] Babesia ducani Negative Negative Babesia divergens/Mo-1 Negative Negative 1 Anaplasma phagocytophilum Negative Negative Ehrlichia chaffeensis Negative Negative Ehrlichia ewingii/canis Negative Negative Ehrlichia muris eauclairensis Negative Negative 2 B. miyamotoi PCR, B Negative Negative 3 Laboratory test 04/27/2019 [facility] Erythrocyte Sed 6 mm/Hr Normal 0-[address] [place] [address] [phone] C Reactive Protein 2.00 mg/L Normal <8.01 1 ADDITIONAL INFORMATION This test was developed and its performance characteristics determined by [facility] in a manner consistent with CLIA requirements. This test has not been cleared or approved by the U.S. Food and Drug Administration. 2 ADDITIONAL INFORMATION This test was developed and its performance characteristics determined by [facility] in a manner consistent with CLIA requirements. This test has not been cleared or approved by the U.S. Food and Drug Administration. 3 ADDITIONAL INFORMATION This test was developed and its performance characteristics determined by [facility] in a manner consistent with CLIA requirements. This test has not been cleared or approved by the U.S. Food and Drug Administration. Test Performed by: [address] [address] Procedures Date Code Description Status 07/07/2018 [id number] Mammogram Completed 04/25/2017 [id number] Mammogram Completed 09/10/2016 [id number] Bone Mineral Density Test Completed Medical Devices Description No Information Available Encounters Type Date Location Provider Dx Diagnosis Office Visit 07/07/2019 9:20a [facility] Internal Sunny Calvillo NP M54.5 [facility]3 Sacrococcygeal disorders, not elsewhere classified Office Visit 05/11/2019 1:00p [facility] Odessa Pierce, M25.462 Effusion, left at [place] knee S83.282D Oth tear of lat mensc, current injury, left knee, subs Office Visit 04/28/2019 1:00p [facility] Joaquín Giron G35 [facility] M.D. sclerosis Z79.899 Other longwall headgate operator (current) drug therapy Office Visit 04/27/2019 9:20a Rheumatology Jc M70.70 Other bursitis of Services Of Sean Fernandes M.D. hip, unspecified hip W57.xxxA Bit/stung by nonvenom insect & oth nonvenom arthropods, init Z79.1 snf (current) use of non-steroidal non-inflam (Nsaid) M19.049 Primary osteoarthritis, unspecified hand Office Visit 02/23/2019 10:15a [facility] Odessa Pierce, M25.462 Effusion, left at [place] knee S83.282A Oth tear of lat mensc, current injury, left knee, init Office Visit 01/29/2019 9:15a [facility] Odessa Pierce, M25.562 Pain in left at [place] knee M25.462 Effusion, left knee S89.92xA Unspecified injury of left lower leg, initial encounter Assessments Date Code Description Provider 07/30/2019 J02.9 Acute pharyngitis, unspecified Armand Lopez M.D. 07/13/2019 M72.2 Plantar fascial fibromatosis Brett Hathaway M.D. 07/07/2019 M54.5 Low back pain Sunny Calvillo NP 07/07/2019 M53.3 Sacrococcygeal disorders, not elsewhere Sunny Calvillo NP classified 05/11/2019 M25.462 Effusion, left knee Odessa Pierce MD 05/11/2019 S83.282D Other tear of lateral meniscus, current Odessa Pierce MD injury, left knee, s 04/28/2019 G35 Multiple sclerosis Joaquín Tee M.D. 04/28/2019 Z79.899 Other correction (current) drug therapy Joaquín Tee M.D. 04/27/2019 M70.70 Other bursitis of hip, unspecified hip Jc Fernandes M.D. 04/27/2019 W57.xxxA Bitten or stung by nonvenomous insect and Jc Fernandes M.D. other nonvenomous 04/27/2019 Z79.1 snf (current) use of non-steroidal Jc Fernandes M.D. anti-inflammatories 04/27/2019 M19.049 Primary osteoarthritis, unspecified hand Jc Fernandes M.D. 02/23/2019 M25.462 Effusion, left knee Odessa Pierce MD 02/23/2019 S83.282A Other tear of lateral meniscus, current Odessa Pierce MD injury, left knee, i 01/29/2019 M25.562 Pain in left knee Odessa Pierce MD 01/29/2019 M25.462 Effusion, left knee Odessa Pierce MD 01/29/2019 S89.92xA Unspecified injury of left lower leg, Odessa Pierce MD initial encounter Plan of Treatment Future Appointment(s):08/12/2019 9:30 am - NICHOLAS Sommer at [facility]11/09/2019 9:45 am - Joaquín Tee M.D. at [facility]07/30/2019 - Armand Lopez M.D.J02.9 Acute pharyngitis, unspecifiedNew Medication:Amoxicillin 500 mg - 1 three times a day for 10 days Functional Status Description No Information Available Mental Status Description No Information Available Referrals Description No Information Available
[2019-08-24 11:01] VITALS: BP 109/71
== END 2019-08-24 11:51 | disposition left against medical advice (07) ==
LOC: UCEAST 10:53
DX: Z53.21 Procedure and treatment not carried out due to patient leaving prior to being seen by health care provider (principal)